=== PATIENT | male | born 1955 | race Caucasian/White ===

== ENCOUNTER 2020-03-14 03:54 | Inpatient (IN) | payer MEDICARE ==
[~2020-03-14] VITALS: Ht 167.6 cm; Wt 85.3 kg
--- OUTSIDE RECORDS SUMMARY | 2020-03-14 03:57 | XMS REPORT | Clinical Summary ---
Author Author [facility] Organization [facility] Address Unknown Phone Unavailable Care Team Providers Care Principal Consultant Name Role Phone Matt Cotton MD PCP Guille Ashton MD PCP Allergies Comments Active Allergy Reactions Severity Noted Date Diane Lerma, 06/21/2017 Itching Medications End Date Status Medication Sig Dispensed Refills Start Date Active ergocalciferol (VITAMIN Take 1 12 capsule 0 D2) 50,000 unit capsule capsule by 7 mouth weekly. Active ergocalciferol (VITAMIN Take 1 12 capsule 0 D2) 50,000 unit capsule capsule by 7 mouth weekly. Active blood glucose test Use 2 times 50 Each 3 01 stripsIndications: Type 2 weekly to 7 diabetes mellitus with test blood other specified sugar. complication, without long-term current use of insulin Active blood glucose Use as 1 Kit 0 meterIndications: Type 2 directed.. 7 diabetes mellitus with other specified complication, without long-term current use of insulin Active lancets 28 Use 2 times 100 Each 1 gaugeIndications: Type 2 weekly. 7 diabetes mellitus with other specified complication, without long-term current use of insulin Active albuterol 90 Inhale 2 20.1 g 1 mcg/actuation Puffs by 7 inhalerIndications: mouth 4 times Chronic bronchitis, daily as unspecified chronic needed for bronchitis type Wheezing. Active Miscellaneous Medical 2 disability 2 Each 0 Supply Misc parking 7 placard for temporary disability. Active tiotropium (SPIRIVA WITH Inhale 1 90 capsule 3 0 HANDIHALER) 18 mcg capsule by 8 inhalation mouth daily. capsuleIndications: Panlobular emphysema, Chronic bronchitis, unspecified chronic bronchitis type Active testosterone cypionate Inject 1 mL 10 mL 0 (DEPO-TESTOSTERONE) 200 intramuscular 8 mg/mL ly every 14 injectionIndications: days. Hypogonadism in male Active naproxen (NAPROSYN) 500 Take 1 tablet 20 tablet 0 mg tabletIndications: by mouth 8 Paronychia of great toe every 12 of left foot hours as needed for Pain Active ipratropium (ATROVENT) Inhale 2.5 mL 250 mL 3 0 0.02 % nebulizer by mouth 4 8 solutionIndications: times daily. Panlobular emphysema Active albuterol (PROVENTIL) 2.5 Inhale 3 mL 300 mL 3 mg /3 mL (0.083 %) by mouth 8 nebulizer every 4 hours solutionIndications: as needed for Panlobular emphysema Wheezing or Shortness of Breath. Active budesonide (PULMICORT) USE 1 VIAL 129 mL 5 0.5 mg/2 mL nebulizer VIA NEBULIZER 8 solutionIndications: COPD TWICE DAILY. exacerbation, Shortness of breath Active mometasone (NASONEX) 50 Use 1 [place] 17 g 4 mcg/actuation nasal in each 8 sprayIndications: Viral nostril URI daily. Active albuterol 90 Inhale 2 30 g 3 mcg/actuation Puffs by 8 inhalerIndications: mouth every 4 Panlobular emphysema, hours as Chronic bronchitis, needed for unspecified chronic Wheezing or bronchitis type Shortness of Breath. Active ipratropium-albuterol 0.5 Inhale 3 mL 300 mL 3 mg-3 mg(2.5 mg base)/3 mL by mouth 8 NebuIndications: every 4 hours Panlobular emphysema as needed for Shortness of Breath or Wheezing. Active fluconazole (DIFLUCAN) Take 1 tablet 90 tablet 1 0 200 mg tabletIndications: by mouth 9 Laura tropicalis daily Lung infection infection. Active metFORMIN (GLUCOPHAGE) Take 1 tablet 180 tablet 1 0 500 mg tabletIndications: by mouth 2 9 Type 2 diabetes mellitus times daily with other specified (with meals). complication, without long-term current use of insulin Active pravastatin (PRAVACHOL) Take 1 tablet 90 tablet 1 40 mg tabletIndications: by mouth at 9 Dyslipidemia bedtime nightly. Active lisinopril (PRINIVIL) 10 Take 1 tablet 90 tablet 1 mg tabletIndications: by mouth 9 Essential hypertension, daily. benign Active loratadine (CLARITIN) 10 Take 1 tablet 90 tablet 1 mg tabletIndications: by mouth 9 Viral URI daily. Active fenofibrate Take 1 tablet 90 tablet 1 nanocrystallized (TRICOR) by mouth 9 145 mg tabletIndications: daily. Hypertriglyceridemia 04/10/2019 Discontinued fenofibrate Take 1 tablet 90 tablet 1 nanocrystallized (TRICOR) by mouth 8 145 mg tabletIndications: daily. Hypertriglyceridemia Active Problems Problem Noted Date Controlled type 2 diabetes mellitus without complicat ion, without long-term 06/10/2018 current use of insulin At risk for dissatisfaction with healthcare 04/17/20 18 Decreased blunger loader strength of left hand 07/03/2017 Type 2 diabetes mellitus without complication, withou t long-term current 06/21/2017 use of insulin Simple chronic bronchitis 06/21/2017 Dyslipidemia 06/21/2017 Closed fracture of fifth metacarpal bone of left hand 05/10/2017 Encounters Care Team Description Date Type Specialty Guille Ashton III, MD Hypertriglyceridemia 08/27/2019 Refill Family Practice Guille Murillo MD COPD exacerbation; Shortness of breath; Essential hypertension, benign; Viral URI:3 days: symptomatic Rx/ meds given //f/u with PCP in 1 wk /patient educated 04/23 ; Type 2 diabetes mellitus with other specified complication, without long-term current use of insulin; Dyslipidemia 08/27/2019 Refill Family Practice Matt Cotton MD Hypertriglyceridemia 04/10/2019 Refill Family Practice after 03/14/2019 Immunizations Name Administration Dates Next Due Influenza Vaccine 07/10/2017 (Deferred: Other - Patient is sick) Influenza, 07/24/2018 Vaccine<FLUCELVAX>(Multi- Dose) PPV 23 Pneumococcal 04/08/2018 (Deferred: Other ) Polysaccaride Td <Unspecified> 05/03/2017 Family History Medical History Relation Name Comments Cancer Father colon cancer Diabetes Father Diabetes Mother Heart Mother Drug abuse Son Seizures Son Relation Name Status Comments Father Maternal Grandfather Maternal Grandmother Mother Alive Paternal Grandfather Paternal Grandmother Sister Alive Sister Alive Son (Age 18) Son Alive Social History Date Tobacco Use Types Packs/Day Years Used Former Smoker Cigarettes Smokeless Tobacco: Never Used Tobacco Cessation: Counseling Given: No Drinks/Week oz/Week Comments Alcohol Use No Food Insecurity Answer Date Recorded Within the past 12 months, you worried that your Never jes e 07/24/2018 food would run out before you got money to buy more. Within the past 12 months, the food you bought Never true 07/24/2018 just didn't last and you didn't have mo marianela to get more. Sex Assigned at Date Recorded Not on file Industry Job Start Date Occupation Not on file Not on file Not on file Travel End Travel History Travel Start No recent travel history available. Last Filed Vital Signs Not on file Plan of Treatment Health Maintenance Due Date Last Done Comments DM Retinal Exam (Yearly) 06/13/2018 06/13/2017 Colorectal Cancer Scrn 07/19/2018 07/19/2017 Annual (FIT/FOBT) Age 50 to 75 DM HGBA1C (Yearly) 04/24/2019 04/24/2018, 017 DM Foot Exam (Yearly) 06/10/2019 06/10/2018, 03/2017, 06/12/2017 IMM Influenza Seasonal 07/07/2020 07/24/2018 Oct to December (>/= 19 yrs) Results Not on fileafter 03/14/2019 Insurance Type Payer Benefit Subscriber ID Effective Phone Address Plan / Dates Group [facility] [employer] [employer] SELF-PAY xxxxxxx 2018- [phone] [id number] [place] [address]
--- OUTSIDE RECORDS SUMMARY | 2020-03-14 03:57 | XMS REPORT | Continuity of Care Document ---
Author Author [facility] t Organization [facility] Address [address] [place] [address] Phone Unavailable Care Team Providers Care Flume Tender Name Role Phone Yury KRISHNA, S Matt PCP Poli KRISHNA, W Guille Attphys Chidi KRISHNA, N Guille Attphys Yury KRISHNA, S Matt Attphys Payers Payer Name Policy Type Policy Number Effective Date Expiration Date S kamran [facility] [id number] SCREENEDxxxxxxx7/1 12/2017-07/06/[id number] [place] [address] xxxxxxx 2018 00:00:00 2020 2 3:59:59 [facility] Problems Condition Name Condition Details Condition Category Status Onset Date Resolution Date Last Treatment Date Treating Clinician Comments Source Controlled type 2 diabetes mellitus with out complication, without long-term current use of insulin Controlled type 2 diabetes mellitus with out complication, without long-term current use of insulin Disease Active 2018-06-10 00:00: 00 [facility] At risk for dissatisfaction with healthcare At risk fo r dissatisfaction with healthcare Disease Active 2018-04-17 00:00:00 H arrSongbird Decreased outreach nurse strength of left hand Decreased outreach nurse strength of left hand Disease Active 2017-07-03 00:00:00 [facility] Type 2 diabetes mellitus without complic ation, without long-term current use of insulin Type 2 diabetes mellitus without complic ation, without long-term current use of insulin Disease Active 2017-06-21 00:00:00 [facility] Simple chronic bronchitis Simple chronic bronchitis Disease Ac tive 2017-06-21 00:00:00 [facility] Dyslipidemia Dyslipidemia Disease Active 2017-06-21 00:00:00 [facility] Closed fracture of fifth metacarpal bone of left hand Closed fracture of fifth metacarpal bone of left hand Disease Active 2017-05-10 00:00:00 [facility] Allergies, Adverse Reactions, Alerts Allergy Name Allergy Type Status Severity Reaction(s) Onset Date Inacti ve Date Treating Clinician Comments Source codeine DA Active MO 2019-09-14 00:00:00 [facility] Codeine Propensity to adverse reactions to drug Active Hives, Itching 2017-06-21 00:00:00 [facility] code[facility] DA Active U 2017-05-01 00:00:00 [facility] Family History Family Member Diagnosis Comments Start Date Stop Date Source Natural father Cancer [facility] Natural father Diabetes [facility] Natural mother Diabetes [facility] Natural mother Heart [facility] Natural son Drug abuse [facility] Natural son Seizures [facility] Social History Social Habit Start Date Stop Date Quantity Comments Source History of tobacco use Cigarette Smoker [facility] Sex Assigned At [facility] Alcohol intake 2019-03-11 00:00:00 2019-03-11 00[facility] 2018-07-24 00:00:00 2018-07-24 00:00:00 1 [facility] Food Scarcity 2018-07-24 00:00:00 2018-07-24 00:00:00 1 [facility] Smoking Status Start Date Stop Date Source Former smoker 2019-03-11 00:00:00 2019-03-11 00:00:[address] [facility] ealt Medications Ordered Medication Name Filled Medication Name Start Date Stop Da te Current Medication? Ordering Clinician Indication Dosage Frequency Signature (SIG) Comments Components Source fenofibrate nanocrystallized (TRICOR) 145 mg tablet 04-13 00:00:00 Yes Hypertriglyceridemia 145mg QD Take 1 tablet by mouth daily. 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 [facility] metFORMIN (GLUCOPHAGE) 500 mg tablet 2019-01-22 00:00:00 Yes Type 2 diabetes mellitus with other specified complication, without long-term current use of insulin 500mg Take 1 tablet by mouth 2 times daily (with meals). [facility] pravastatin (PRAVACHOL) 40 mg tablet 2019-01-22 00:00:00 Yes Dyslipidemia 40mg Take 1 tablet by mouth at bedtime nightly. [facility] lisinopril (PRINIVIL) 10 mg tablet 2019-01-22 00:00:00 Yes Essential hypertension, benign 10mg QD Take 1 tablet by mouth daily. [facility] loratadine (CLARITIN) 10 mg tablet 2019-01-22 00:00:00 Y es Viral URI 10mg QD Take 1 tablet by mouth daily. [facility] albuterol 90 mcg/actuation inhaler 2018-07-24 00:00:00 Yes Chronic bronchitis, unspecified chronic bronchitis type 2{puff} Inhale 2 Puffs by mouth every 4 hours as needed for Wheezing or Shortness of Breath. [facility] ipratropium-albuterol 0.5 mg-3 mg(2.5 mg base)/3 mL Nebu 2018-07-24 00:00:00 Yes Panlobular emphysema 3mL Inha le 3 mL by mouth every 4 hours as needed for Shortness of Breath or Wheezing. [facility] ipratropium (ATROVENT) 0.02 % nebulizer solution 2018-07-03 00:00:00 Yes Panlobular emphysema .5mg Inhale 2.5 mL by mouth 4 times daily. [facility] albuterol (PROVENTIL) 2.5 mg /3 mL (0.083 %) nebulizer solut ion 2018-07-03 00:00:00 Yes Panlobular emphysema 2.5mg Inhale 3 mL by mouth every 4 hours as needed for Wheezing or Shortness of Breath. [facility] budesonide (PULMICORT) 0.5 mg/2 mL nebulizer solution 2018-07-03 00:00:00 Yes Shortness of breath USE 1 VIAL VIA NEBULIZER TWI CE DAILY. [facility] mometasone (NASONEX) 50 mcg/actuation nasal spray 2018-07-03 00:00:00 Yes Viral URI 1{spray} QD Use 1 Hurley in each nostril daily. [facility] fenofibrate nanocrystallized (TRICOR) 145 mg tablet 2018-07-03 00:00:00 2019-04-10 00:00:00 No Hypertriglyceridemia 145mg QD Take 1 tablet by mouth daily. [facility] naproxen (NAPROSYN) 500 mg tablet 2018-06-10 00:00:00 Yes Paronychia of great toe of left foot 500mg Take 1 tablet by mouth every 12 hours as needed for Pain [facility] testosterone cypionate (DEPO-TESTOSTERONE) 200 mg/mL injecti on 2018-01-29 00:00:00 Yes Hypogonadism in male 200mg Q14D Inject 1 mL intramuscularly every 14 days. [facility] tiotropium (SPIRIVA WITH HANDIHALER) 18 mcg inhalation capsu le 2018-01-02 00:00:00 Yes Chronic bronchitis, unspecif ied chronic bronchitis type 1{capsule} QD Inhale 1 capsule by mouth daily. [facility] Miscellaneous Medical Supply Misc 2017-07-19 00:00:00 Yes [address] for temporary disability. [facility] blood glucose test strips 2017-06-13 00:00:00 Yes Type 2 diabetes mellitus with other specified complication, without long-term current use of insulin Use 2 times weekly to test blood sugar. [facility] lancets 28 gauge 2017-06-13 00:00:00 Yes Type 2 diabetes mellitus with other specified complication, without long-term current use of insulin Use 2 times weekly. [facility] blood glucose meter 2017-06-12 00:00:00 Yes Type 2 diabetes mellitus with other specified complication, without long-term current use of insulin Use as directed.. [facility] albuterol 90 mcg/actuation inhaler 2017-06-12 00:00:00 Yes Chronic bronchitis, unspecified chronic bronchitis type 2{puff} Inhale 2 Puffs by mouth 4 times daily as needed for Wheezing. [facility] ergocalciferol (VITAMIN D2) 50,000 unit capsule 2017-05-27 00:00 :00 Yes [id number] Take 1 capsule by mouth weekly. [facility] ergocalciferol (VITAMIN D2) 50,000 unit capsule 2017-05-27 00:00 :00 Yes [id number] Take 1 capsule by mouth weekly. [facility] Immunizations Ordered Immunization Name Filled Immunization Name Date Status Comments Source Influenza, Vaccine<FLUCELVAX>(Multi-Dose) 2018-07-24 00:00 :00 Completed [facility] Td <Unspecified> 2017-05-03 00:00:00 Completed [facility] Procedures This patient has no known procedures. Plan of Care Planned Activity Planned Date Details Comments Source Future Scheduled Test 2020-07-07 00:00:00 IMM Influenza Seas onal Jul to December (>/= 19 yrs) [code = IMM Influenza Seasonal Jul to December (>/= 19 yrs)] [facility] Scheduled Test 2019-06-10 00:00:00 DM Foot Exam (Year ly) [code = DM Foot Exam (Yearly)] [facility] Scheduled Test 2019-04-24 00:00:00 DM HGBA1C (Yearly) [code = DM HGBA1C (Yearly)] [facility] Scheduled Test 2018-07-19 00:00:00 Colorectal Cancer Scrn Annual (FIT/FOBT) Age 50 to 75 [code = Colorectal Cancer Scrn Annual (FIT/FOBT) Age 50 to 75] [facility] Scheduled Test 2018-06-13 00:00:00 DM Retinal Exam (Y early) [code = DM Retinal Exam (Yearly)] [facility] Encounters Start Date/Time End Date/Time Encounter Type Admission Type Attendi [facility] Care Department Encounter ID Source 2018-08-18 00:00:00 2018-08-18 00:00:[address] [facility] [id number] [facility] 2018-08-18 00:00:00 2018-08-18 00:00:[address] [facility] [id number] [facility] 2018-08-04 00:00:00 2018-08-04 00:00:[address] [facility] [id number] [facility] 2018-07-24 15:23:04 2018-07-24 15:23:[address] [facility] [id number] [facility] 2018-06-10 09:13:49 2018-06-10 09:13:[address] [facility] [id number] [facility] 2018-06-06 00:00:00 2018-06-06 00:00:[address] [facility] [id number] [facility] 2018-05-27 00:00:00 2018-05-27 00:00:[address] [facility] [id number] [facility] 2018-05-12 08:55:36 2018-05-12 08:55:[address] [facility] [id number] [facility] 2018-05-09 00:00:00 2018-05-09 00:00:[address] [facility] [id number] [facility] 2018-05-08 10:15:47 2018-05-08 10:15:[address] [facility] [id number] [facility] 2018-05-05 15:18:13 2018-05-05 15:18:[address] [facility] [id number] [facility] 2018-04-28 09:07:51 2018-04-28 09:07:[address] [facility] [id number] [facility] 2018-04-24 08:18:29 2018-04-24 08:18:[address] [facility] [id number] [facility] 2018-04-18 00:00:00 2018-04-18 00:00:[address] [facility] [id number] [facility] 2018-04-17 10:39:26 2018-04-17 10:39:[address] [facility] [id number] [facility] 2018-04-17 09:29:43 2018-04-17 09:29:[address] [facility] [id number] [facility] 2018-04-14 08:32:21 2018-04-14 08:32:[address] [facility] [id number] [facility] 2018-04-08 09:36:12 2018-04-08 09:36:[address] [facility] [id number] [facility] 2018-03-31 10:35:07 2018-03-31 10:35:[address] [facility] [id number] [facility] 2018-03-14 11:04:38 2018-03-14 11:04:[address] [facility] [id number] [facility] 2018-02-28 09:36:52 2018-02-28 09:36:[address] [facility] [id number] [facility] 2018-02-14 09:23:56 2018-02-14 09:23:[address] [facility] [id number] [facility] 2018-02-12 09:09:03 2018-02-12 09:09:[address] [facility] [id number] [facility] 2018-02-12 00:00:00 2018-02-12 00:00:[address] [facility] [id number] [facility] 2018-01-29 11:53:14 2018-01-29 11:53:[address] [facility] [id number] [facility] 2018-01-29 00:00:00 2018-01-29 00:00:[address] [facility] [id number] [facility] 2018-01-28 00:00:00 2018-01-28 00:00:[address] [facility] [id number] [facility] 2018-01-02 09:03:32 2018-01-02 09:03:[address] [facility] [id number] [facility] 2018-01-02 00:00:00 2018-01-02 00:00:[address] [facility] [id number] [facility] 2018-01-02 00:00:00 2018-01-02 00:00:[address] [facility] [id number] [facility] 2017-12-27 13:01:07 2017-12-27 13:01:[address] [facility] [id number] [facility] 2017-12-26 07:52:32 2017-12-26 07:52:[address] [facility] [id number] [facility] 2017-12-26 00:00:00 2017-12-26 00:00:[address] [facility] [id number] [facility] 2017-12-25 09:37:26 2017-12-25 09:37:[address] [facility] [id number] [facility] 2017-12-23 00:00:00 2017-12-23 00:00:[address] [facility] [id number] [facility] 2017-12-13 10:34:56 2017-12-13 10:34:[address] [facility] [id number] [facility] 2017-11-25 08:34:01 2017-11-25 08:34:[address] [facility] [id number] [facility] 2017-09-23 13:45:13 2017-09-23 13:45:[address] [facility] [id number] [facility] 2017-08-01 08:08:12 2017-08-01 08:08:[address] [facility] [id number] [facility] 2017-07-30 07:47:29 2017-07-30 07:47:[address] [facility] [id number] [facility] 2017-07-29 07:57:21 2017-07-29 07:57:[address] [facility] [id number] [facility] 2017-07-29 07:49:20 2017-07-29 07:49:[address] [facility] [id number] [facility] 2017-07-25 09:01:17 2017-07-25 09:01:[address] [facility] [id number] [facility] 2017-07-19 14:50:34 2017-07-19 14:50:[address] [facility] [id number] [facility] 2017-07-16 08:22:34 2017-07-16 08:22:[address] [facility] [id number] [facility] 2017-07-11 00:00:00 2017-07-11 00:00:[address] [facility] [id number] [facility] 2017-07-10 12:12:53 2017-07-10 12:12:[address] [facility] [id number] [facility] 2017-07-10 09:28:01 2017-07-10 09:28:[address] [facility] [id number] [facility] 2017-07-03 08:31:45 2017-07-03 08:31:[address] [facility] [id number] [facility] 2017-06-21 08:54:24 2017-06-21 08:54:[address] [facility] [id number] [facility] 2017-06-21 07:59:13 2017-06-21 07:59:[address] [facility] [id number] [facility] 2017-06-17 15:55:55 2017-06-17 15:55:[address] [facility] [id number] [facility] 2017-06-17 15:08:50 2017-06-17 15:08:[address] [facility] [id number] [facility] 2017-06-14 00:00:00 2017-06-14 00:00:[address] [facility] [id number] [facility] 2017-06-14 00:00:00 2017-06-14 00:00:[address] [facility] [id number] [facility] 2017-06-13 11:23:18 2017-06-13 11:23:[address] [facility] [id number] [facility] 2017-06-13 10:57:36 2017-06-13 10:57:[address] [facility] [id number] [facility] 2017-06-13 08:33:35 2017-06-13 08:33:[address] [facility] [id number] [facility] 2017-06-13 08:24:29 2017-06-13 08:24:[address] [facility] [id number] [facility] 2017-06-13 00:00:00 2017-06-13 00:00:[address] [facility] [id number] [facility] 2017-06-13 00:00:00 2017-06-13 00:00:[address] [facility] [id number] [facility] 2017-06-12 15:55:25 2017-06-12 15:55:[address] [facility] [id number] [facility] 2017-06-12 15:00:51 2017-06-12 15:00:[address] [facility] [id number] [facility] 2017-05-27 00:00:00 2017-05-27 00:00:[address] [facility] [id number] [facility] 2017-05-27 00:00:00 2017-05-27 00:00:[address] [facility] [id number] [facility] 2017-05-20 00:00:00 2017-05-20 00:00:[address] [facility] [id number] [facility] 2017-05-10 08:25:54 2017-05-10 08:25:[address] [facility] [id number] [facility] 2017-05-10 08:25:52 2017-05-10 08:25:[address] [facility] [id number] [facility] 2017-05-10 07:04:10 2017-05-10 07:04:[address] [facility] [id number] [facility] Results Test Description Test Time Test Comments Results Result Comments Source GLUBED 2019-09-15 16:04:00 Test Item GLUBED (test code = GLUBED) 177 mg/dL 74-106 H Performed by certified proof machine operator at [facility] [id number] 09:22:00* Test Item Value Reference Range Interpretation Comments GLUBED (test code = GLUBED) 138 mg/dL 74-106 H Performed by certified proof machine operator at [facility] [id number] 18:06:00* Test Item Value Reference Range Interpretation Comments TROPONIN-I (test code = TROPI) <0.015 ng/mL 0-0.045 N COMMENTS TO PASTRYCOOK: COLLECT 3 HOURS AFTER PREVIOUS SAMPLE- CT CHEST [id number] 15:19:00 Name: SERGIO HITCHCOCK [facility] : 1955 Age/S: 64 / M [address] [facility] Unit #: [id number] Loc: [place] [address] Phys: Stephen Comer CREATIVE DEVELOPER Acct: [id number] Dis Date: Status: ADM IN PHONE #: [phone] Exam Date: 09/14/2019 1240 FAX #: [phone] Reason: chest pain EXAMS: CPT CODE: [id number] CT CHEST W/CONTRAST [id number] REASON FOR EXAM: chest pain EXAM ORDER DATE: 09/14/2019 10:29 AM Ordering M.DNancy: Stephen Comer NP PROCEDURE: - CT CHEST W/CONTRAST Comparison:CT scan of the chest every [address] images of the chest were obtained with IV contrast. Reconstructed sagittal and coronal images of the chest were provided for interpretation. Dose reduction techniques were applied. FINDINGS: Visualized neck: Normal Airways, Lungs and Pleura: There is mild subsegmental atelectasis in the middle lobe and lingula. Heart, great vessels, pulmonary vessels, mediastinum: Proximal pulmonary arteries are within normal limits. Mild atherosclerotic disease is present in the aortic arch. There is also mild coronary atherosclerosis. Cardiac chambers are within normal limits. Lymph nodes: No axillary, internal mammary, hilar, or mediastinal adenopathy. Musculoskeletal/chest wall: Mild degenerative changes are present in the spine. Visualized upper abdomen: Simple appearing cyst is present in the superior pole of the right kidney measuring 6 cm in diameter. Liver is enlarged and fatty. Mild fatty replacement of the pancreas. IMPRESSION: No acute intrathoracic process. Hepatomegaly with hepatic steatosis. Location: [facility] PAGE 1 Signed Report (CONTINUED) Name: SERGIO HITCHCOCK [facility] : 1955 Age/S: 64 / M [address] Unit #: [id number] Loc: [place] [address] Phys: Stephen Comer CREATIVE DEVELOPER Acct: [id number] Dis Date: Status: ADM IN PHONE #: [phone] Exam Date: 09/14/2019 1240 FAX #: [phone] Reason: chest pain EXAMS: CPT CODE: [id number] CT CHEST W/CONTRAST 93570 <Continued> at 1519 Reported and signed by: Sy Joyce MD CC: Stephen Comer NP; Guy Stubbs MD Technologist:Mitesh Burgess RT(R)(CT) CTDI: DLP: Trnscb Date/Time: 09/14/2019 (1622) [email or web address] Orig Print D/T: S: 09/14/2019 (9597) PAGE 2 Signed Report [id number] 15:16:00* Test Item Value Reference Range Interpretation Comments GLUBED (test code = GLUBED) 174 mg/dL 74-106 H Performed by certified proof machine operator at [facility] [id number] 14:39:00* Test Item Value Reference Range Interpretation Comments TROPONIN-I (test code = TROPI) <0.015 ng/mL 0-0.045 N COMMENTS TO PASTRYCOOK: COLLECT 3 HOURS AFTER PREVIOUS [id number] 11:48:00* Test Item Value Reference Range Interpretation Comments GLUBED (test code = GLUBED) 219 mg/dL 74-106 H Performed by certified proof machine operator at [facility] LIPID PROFILE (CORONARY RISK)2019-09-14 09:58:00* Test Item Value Reference Range Interpretation Comments TRIGLYCERIDES (test code = TRIG) 291 mg/dL 20-150 H CHOLESTEROL (test code = CHOL) 161 mg/dL 0-200 N CHOLESTEROL/HDL RATIO (test code = CHOLHDL) 5.0 RATIO 0-4.9 H RISK ASSOCIATED WITH CHOL/HDL RATIOS: Risk Male Female1/2 AVERAGE 3.43 3.27AVERAGE 4.97 4.442X AVERAGE 9.55 7.053X AVERAGE 23.39 11.04 REFERENCE VALUE IS RELATED TO RISK LEVELS ASRECOMMENDED BY THE RAUL. HEART, LUNG, AND BLOOD INST. HDL CHOLESTEROL (test code = HDL) 31 mg/dL 40-60 L LIPOPROTEIN LDL (test code = LDL) 90 mg/dL 100-129 L Reference Interval: mg/dL mmol/L Optimal <100 <2.6Near/above optimal 100-129 2.6- 3.3Borderline High 130-159 3.4-4.1High 160-189 4.1-4.9Very High >=190 >=4.9========= This LDL result is a direct measurement.========= SPECIMEN COMMENTS: add to labsSPECIMEN COMMENTS: add to labs THYROID STIMULATING [id number] 09:58:00* Test Item Value Reference Range Interpretation Comments THYROID STIMULATING HORMONE (test code = TSH) 2.610 uIU/mL 0.36-3.7 4 N TSH REFERENCE RANGES: EUTHYROID: 0.35 - 4.3 mIU/mL HYPO : > 5.5 mIU/mL HYPER : < 0.35 mIU/mL SPECIMEN COMMENTS: add to labsSPECIMEN COMMENTS: add to labs [id number] 08:46:00* Test Item Value Reference Range Interpretation Comments GLUBED (test code = GLUBED) 157 mg/dL 74-106 H Performed by certified proof machine operator at [facility] [id number] 07:55:00* Test Item Value Reference Range Interpretation Comments D-DIMER (test code = DDIMER) 410.00 ng/mLFEU 0-500 N Clinical Cut-off value for D-Dimer is 500 ng/mL FEU. Comment: The [employer] D-Dimer assay is intended for use asan aid in the diagnosis of venous thromboembolism (VTE)[deep vein thrombosis (DVT) or pulmonary embolism (PE)].The measurement of D-Dimer should not be used as an aid inthe diagnosis of VTE, in patient with: -Therapeutic dose anticoagulant therapy for >24 hours -Fibrinolytic therapy within previous 7 days -Trauma or surgery within previous 4 weeks -Disseminated malignancies -Aortic aneurysm -Sepsis, severe infections, pneumonia, severe skin infections -Liver cirrhosis - HEPATIC FUNCTION [id number] 07:39:00* Test Item Value Reference Range Interpretation Comments TOTAL PROTEIN (test code = PROT) 6.9 gram/dL 6.4-8.2 N ALBUMIN (test code = ALB) 3.5 g/dL 3.4-5.0 N GLOBULIN (test code = GLOB) 3.4 gram/dL 2.7-4.2 N ALBUMIN/GLOBULIN RATIO (test code = A/G) 1.0 0.75-1.50 N BILIRUBIN TOTAL (test code = BILT) 0.30 mg/dL 0.0-1.0 N BILIRUBIN DIRECT (test code = BILD) 0.10 mg/dL 0.0-0.20 N SGOT/AST (test code = AST) 10 IUnit/L 15-37 L SGPT/ALT (test code = ALT) 22 IUnit/L 12-78 N ALKALINE PHOSPHATASE TOTAL (test code = ALKP) 65 IUnit/L 45-117 N Note change in reference range due to change in reagent. [id number] 07:39:00* Test Item Value Reference Range Interpretation Comments LIPASE (test code = LIP) 44 U/L 73.0-393.0 L - XR CHEST 1 [id number] 06:56:00 FAX: Moise Donaldson MD [place]: St: REG Name: SERGIO STEWART [facility] : [birth year] Age/S: 64/M [address] [facility] Unit #: [id number] Loc: [place] [address] Phys: Moise Donaldson MD Acct: [id number] Dis Date: Status: REG ER PHONE #: [phone] Exam Date: 09/14/2019 0631 FAX #: [phone] Reason: CHEST PAIN EXAMS: CPT CODE: [id number] XR CHEST 1 V 68798 EXAM: - XR CHEST 1 V Location code:C3 HISTORY: CHEST PAIN COMPARISON: FINDINGS: Single AP view of the chest is pro vided. Heart size and vascularity are within normal limits. The max gs are clear of focal consolidation. No effusion, pneumothorax, or acute osseous abnormality. IMPRESSION: 1. No radiographic sreekanth dence of acute cardiopulmonary process. at 0656 Reported and signed by: Dennis eaton M.D. CC: Moise Donaldson MD Technologist: Kaylie Kendrick(R) Trnscrd Date/Time/By: 09/14/2019 (0656) : By: [email or web address] Orig Print D/T : S: 09/14/2019 (0646) PAGE 1 Sig joey Report BASIC METABOLIC [id number] 06:14:00* Test Item Value Reference Range Interpretation Comments SODIUM (test code = NA) 137 mmol/L 136-145 N POTASSIUM (test code = K) 4.2 mmol/L 3.5-5.1 N CHLORIDE (test code = CL) 105.0 mmol/L 98-107 N CARBON DIOXIDE (test code = CO2) 27.0 mmol/L 21-32 N ANION GAP (test code = GAP) 9.2 10-20 L GLUCOSE (test code = GLU) 144 mg/dL 74-106 H BLOOD UREA NITROGEN (test code = BUN) 18 mg/dL 7-18 N GLOMERULAR FILTRATION RATE (test code = GFR) > 60 mL/min >=60 Estimated GFR by using Modified MDRD formula.Chronic kidney disease is defined as either kidney damageor GFR <60 mL/min/1.73 m2 for >3 months. CREATININE (test code = CREAT) 1.20 mg/dL 0.7-1.3 N BUN/CREATININE RATIO (test code = BUN/CREA) 15.7 10-20 N CALCIUM (test code = CA) 8.9 mg/dL 8.5-10.1 N [id number] 06:14:00* Test Item Value Reference Range Interpretation Comments TROPONIN-I (test code = TROPI) <0.015 ng/mL 0-0.045 N CBC W/O [id number] 06:01:00* Test Item Value Reference Range Interpretation Comments WHITE BLOOD CELL (test code = WBC) 11.4 K/mm3 4.5-12.5 N RED BLOOD CELL (test code = RBC) 4.55 mill/mm3 4.0-5.8 N HEMOGLOBIN (test code = HGB) 13.6 gram/dL 13.0-17.5 N HEMATOCRIT (test code = HCT) 43.8 % 42.0-52.0 N MEAN CELL VOLUME (test code = MCV) 95.8 fL 80-98 N MEAN CELL HGB (test code = MCH) 29.5 picogram 27.0-33.0 N MEAN CELL HGB CONCETRATION (test code = MCHC) 30.7 gram/dL 33.0-36. 0 L RED CELL DISTRIBUTION WIDTH (test code = RDW) 13.5 % 11.6-16. 2 N PLATELET COUNT (test code = PLT) 241 K/mm3 150-450 N MEAN PLATELET VOLUME (test code = MPV) 9.8 fL 6.7-11.0 N BASIC METABOLIC [id number] 05:58:00* Test Item Value Reference Range Interpretation Comments SODIUM (test code = NA) 137 mmol/L 136-145 N POTASSIUM (test code = K) 4.2 mmol/L 3.5-5.1 N CHLORIDE (test code = CL) 105.0 mmol/L 98-107 N CARBON DIOXIDE (test code = CO2) mmol/L 21-32 ANION GAP (test code = GAP) 10-20 GLUCOSE (test code = GLU) mg/dL 74-106 BLOOD UREA NITROGEN (test code = BUN) mg/dL 7-18 GLOMERULAR FILTRATION RATE (test code = GFR) mL/min >=60 CREATININE (test code = CREAT) mg/dL 0.7-1.3 BUN/CREATININE RATIO (test code = BUN/CREA) 10-20 CALCIUM (test code = CA) mg/dL 8.5-10.1 [id number] 05:58:00* Test Item Value Reference Range Interpretation Comments TROPONIN-I (test code = TROPI) ng/mL 0-0.045 CBC W/O [id number] 05:52:00* Test Item Value Reference Range Interpretation Comments WHITE BLOOD CELL (test code = WBC) K/mm3 4.5-12.5 RED BLOOD CELL (test code = RBC) mill/mm3 4.0-5.8 HEMOGLOBIN (test code = HGB) 13.6 gram/dL 13.0-17.5 N HEMATOCRIT (test code = HCT) 43.8 % 42.0-52.0 N MEAN CELL VOLUME (test code = MCV) fL 80-98 MEAN CELL HGB (test code = MCH) picogram 27.0-33.0 MEAN CELL HGB CONCETRATION (test code = MCHC) gram/dL 33.0-36. 0 RED CELL DISTRIBUTION WIDTH (test code = RDW) % 11.6-16. 2 PLATELET COUNT (test code = PLT) K/mm3 150-450 MEAN PLATELET VOLUME (test code = MPV) fL 6.7-11.0
[2020-03-14] MEDS ORDERED: SODIUM CHLORIDE 0.9% 1000ML 1,000 ML IV STA ×2 (04:10→05:34)
--- NOTE | 2020-03-14 04:16 | Emergency Department Note ---
History of Present Illnes History of Present Illness Chief Complaint: Back Pain History of Present Illness This is a 64 year old male presents to the ED for nonspecific back and neck pain of 2 weeks duration with generalized malaise. Patient non-specific in complaints but is concerned but possible malignancy. . Historian: Patient Grocery Manager Required: No Onset (how long ago): week(s) (2) Radiation: back, neck Severity: moderate Onset quality: gradual Duration (how long): week(s) (2) Timing of current episode: constant Progression: worsening Chronicity: new Relieving factors: none Exacerbating factors: none Associated symptoms: weakness Treatments prior to arrival: none Past Medical/Family History Physician Review I have reviewed the patient's past medical and family history. Any updates have been documented here. Past Medical History Recent Fever: No Clinical Suspicion of Infectio: No New/Unexplained Change in Ment: No Social History Smoking Cessation: Current every day smoker Counseling Performed: Yes Alcohol Use: None Any Illegal Drug Use: No Review of Systems Review of Systems Constitutional: weakness EENTM: no symptoms Cardiovascular: no symptoms Respiratory: no symptoms Gastrointestinal: no symptoms Genitourinary: no symptoms Musculoskeletal: back pain, neck pain Neurological: no symptoms Psychological: no symptoms Endocrine: no symptoms Hematological/Lymphatic: no symptoms Review of other systems All other systems reviewed and negative. Physical Exam Related Data Allergies: Coded Allergies: No Known Allergies (Unverified , 03/14/20) Physical Exam CONSTITUTIONAL Constitutional: well-developed, well-nourished HENT HENT: normocephalic, atraumatic, oropharynx clear/moist, nose normal HENT L/R: left ext ear normal, right ext ear normal EYES Eyes: PERRL, conjunctivae normal NECK Neck: ROM normal, other (midline cervical pain TTP) PULMONARY Pulmonary: effort normal, breath sounds normal CARDIOVASCULAR Cardiovascular: regular rhythm, heart sounds normal, capillary refill normal, normal rate GASTROINTESTINAL Abdominal: soft, nontender, bowel sounds normal GENITOURINARY Genitourinary: exam deferred SKIN Skin: warm, dry MUSCULOSKELETAL Musculoskeletal: ROM normal, tenderness (midline lumbar) NEUROLOGICAL Neurological: alert, oriented x 3, no gross motor or sensory deficits PSYCHOLOGICAL Psychological: mood/affect normal, judgement normal Results Laboratory Lab results reviewed: Yes Laboratory comments Laboratory Tests Test 03/14/20 04:50 03/14/20 04:28 Urine Color Yellow (YELLOW) Urine Clarity Cloudy (CLEAR) Urine pH 5 (5 - 7) Urine Specific [place] >=1.030 (1.010-1.025) Urine Protein Trace (NEGATIVE) Urine Glucose (UA) Negative (NEGATIVE) Urine Ketones Negative (NEGATIVE) Urine Blood Negative (NEGATIVE) Urine Nitrite Negative (NEGATIVE) Urine Bilirubin Negative (NEGATIVE) Urine Urobilinogen 0.2 mg/dL (0.2 - 1) Urine Leukocyte Esterase Negative (NEGATIVE) Urine RBC 0-5 /HPF (0-5) Urine WBC 6-10 /HPF (0-5) Urine Epithelial Cells Few /LPF (NONE) Urine Calcium Oxalate Crystals Few (FEW) Urine Other Crystals Present (NONE) Urine Bacteria Few /HPF (NONE) Urine Hyaline Casts 2-5 (0-1) Urine Opiates Screen Negative (NEGATIVE) Urine Methadone Screen Positive (NEGATIVE) Urine Barbiturates Screen Negative (NEGATIVE) Urine Phencyclidine Screen Negative (NEGATIVE) Urine Amphetamines Screen Negative (NEGATIVE) Urine Methamphetamines Screen Negative (NEGATIVE) Urine Benzodiazepines Screen Negative (NEGATIVE) Urine Cocaine Screen Negative (NEGATIVE) Urine Cannabinoids Screen Negative (NEGATIVE) White Blood Count 10.89 x10e3/uL (4.8-10.8) Red Blood Count 4.17 x10e6/uL (4.3-5.7) Hemoglobin 12.4 g/dL (14.0-18.0) Hematocrit 40.2 % (38.2-49.6) Mean Corpuscular Volume 96.4 fL (81-99) Mean Corpuscular Hemoglobin 29.7 pg (28-32) Mean Corpuscular Hemoglobin Concent 30.8 g/dL (31-35) Red Cell Distribution Width 16.8 % (11.7-14.4) Platelet Count 227 x10e3/uL (140-360) Neutrophils (%) (Auto) 59.7 % (38.7-80.0) Lymphocytes (%) (Auto) 26.9 % (18.0-39.1) Monocytes (%) (Auto) 9.1 % (4.4-11.3) Eosinophils (%) (Auto) 3.6 % (0.0-6.0) Basophils (%) (Auto) 0.4 % (0.0-1.0) Neutrophils # (Auto) 6.5 (2.1-6.9) Lymphocytes # (Auto) 2.9 (1.0-3.2) Monocytes # (Auto) 1.0 (0.2-0.8) Eosinophils # (Auto) 0.4 (0.0-0.4) Basophils # (Auto) 0.0 (0.0-0.1) Absolute Immature Granulocyte (auto 0.03 x10e3/uL (0-0.1) Sodium Level 141 mmol/L (136-145) Potassium Level 5.5 mmol/L (3.5-5.1) Chloride Level 104 mmol/L (98-107) Carbon Dioxide Level 18 mmol/L (22-29) Anion Gap 24.5 mmol/L (8-16) Blood Urea Nitrogen 77 mg/dL (7-26) Creatinine 7.58 mg/dL (0.72-1.25) Estimat Glomerular Filtration Rate 7 ML/MIN (60-) BUN/Creatinine Ratio 10 (6-25) Glucose Level 133 mg/dL (74-118) Calcium Level 7.8 mg/dL (8.4-10.2) Total Bilirubin 0.4 mg/dL (0.2-1.2) Aspartate Amino Transf (AST/SGOT) 13 IU/L (5-34) Alanine Aminotransferase (ALT/SGPT) 11 IU/L (0-55) Alkaline Phosphatase 43 IU/L (40-150) Creatine Kinase 564 IU/L (30-200) Creatine Kinase MB 14.90 ng/mL (0-5.0) Troponin I < 0.001 ng/mL (0-0.300) Total Protein 6.7 g/dL (6.5-8.1) Albumin 3.9 g/dL (3.5-5.0) Globulin 2.8 g/dL (2.3-3.5) Albumin/Globulin Ratio 1.4 (0.8-2.0) Ethyl Alcohol Level < 10.0 mg/dL (0.0-10.0) Imaging Imaging results reviewed: Yes Impressions [place] [address] Patient Name: SERGIO HITCHCOCK MR #: [id number] : 1955 Age/Sex: 64/M Req #: [id number] [facility] Physician: Ordered by: NICHOL MOSES DO Report #: [id number] Location: ER Room/Bed: Procedure: CT/CT CHEST WO Exam Date: Exam Time: REPORT STATUS: Signed CT chest, abdomen and pelvis without contrast Indication: back pain, ^abd pain Technique: Thin collimation axial images obtained from the thoracic inlet to the level of the pubic symphysis without intravenous contrast. RADIATION DOSE: Total DLP: 859.65 mGy*cm Estimated effective dose: (DLP x 0.015 x size factor) mSv CTDIvol has been reviewed. It is below the limits set by the Radiation Protocol Committee (RPC). Dose reduction techniques used: Automated exposure control, adjustment of the mAs and/or kVp according to patient size, standardized low-dose protocol, and/or iterative reconstruction technique. Comparison: None. CHEST FINDINGS: Lymph nodes: No enlarged axillary, supraclavicular, mediastinal, or hilar lymph nodes. Thyroid: Visualized portions are normal. Mediastinum: The heart is normal in size. Mild burden of coronary artery atherosclerosis. No pericardial effusion. The esophagus is collapsed. Lungs: Right Lung: Centrilobular emphysema. Diffuse bronchial wall thickening. Subsegmental atelectasis in the middle and lower lobes. Left Lung: Centrilobular emphysema. Diffuse bronchial wall thickening. Subsegmental atelectasis in the lower lobe. Pleura:No pleural effusion or pleural based mass. ABDOMEN FINDINGS: Liver: Moderate to severe steatosis. Right lobe measures 18 cm in length. No evidence for mass. Gallbladder: Present and appears normal. No biliary ductal dilatation. Pancreas: Diffuse fatty atrophy. No mass or ductal dilatation. Spleen: Normal in size without mass. Adrenal Glands: No evidence for mass. Kidneys: Right: Multiple low attenuating cortical lesions. The largest is in the upper pole and measures 6 cm and 8 Hounsfield units suggestive of cyst. No hydronephrosis. Left: A cyst in the anterior interpolar region measures 1.3 cm. There are several other low attenuating cortical lesions scattered throughout the parenchyma, two small to characterize. No hydronephrosis. Lymph Nodes: No lymphadenopathy. Aorta: Normal in diameter with scattered calcifications. PELVIS FINDINGS: Bowel: Stomach: The stomach is normal. Small Bowel: Normal in caliber with normal wall thickness. Large Bowel: Diverticulosis coli. Mild to moderate burden of stool throughout the colon. No pericolonic inflammation. Appendix: Not visualized. Bladder: Mildly underdistended but otherwise normal. Prostate gland is mildly enlarged. Lymph Nodes: No enlarged abdominal or retroperitoneal lymph nodes. No free fluid or fluid collection. Bones: No focal osseous lesions. Soft tissues: Bilateral gynecomastia. Small bilateral fat-containing inguinal hernias. IMPRESSION: 1. Centrilobular emphysema and bronchial wall thickening suggestive of bronchitis. No pulmonary infiltrates. Subsegmental atelectasis. 2. Steatosis and hepatomegaly. Bilateral gynecomastia. 3. Diverticulosis coli. No evidence for bowel obstruction or inflammation. 4. Bilateral renal cortical lesions, some of which represent cysts. These can be evaluated with renal ultrasound on an outpatient basis. Signed by: Dr. Alex Han MD on 03/14/2020 6:36 AM Dictated By: ALEX HAN MD 5 Transcribed By: HUMAIRA on 03/14/20635 COPY TO: NICHOL MOSES DO~ [place] [address] Patient Name: SERGIO HITCHCOCK MR #: [id number] : 1955 Age/Sex: 64/M Req #: [id number] Adm Physician: Ordered by: NICHOL MOSES DO Report #: [id number] Location: Room/Bed: Procedure: [id number] CT/CT ABDOMEN/PELVIS WO Exam Date: Exam Time: REPORT STATUS: Signed CT chest, abdomen and pelvis without contrast Indication: back pain, ^abd pain Technique: Thin collimation axial images obtained from the thoracic inlet to the level of the pubic symphysis without intravenous contrast. RADIATION DOSE: Total DLP: 859.65 mGy*cm Estimated effective dose: (DLP x 0.015 x size factor) mSv CTDIvol has been reviewed. It is below the limits set by the Radiation Protocol Committee (RPC). Dose reduction techniques used: Automated exposure control, adjustment of the mAs and/or kVp according to patient size, standardized low-dose protocol, and/or iterative reconstruction technique. Comparison: None. CHEST FINDINGS: Lymph nodes: No enlarged axillary, supraclavicular, mediastinal, or hilar lymph nodes. Thyroid: Visualized portions are normal. Mediastinum: The heart is normal in size. Mild burden of coronary artery atherosclerosis. No pericardial effusion. The esophagus is collapsed. Lungs: Right Lung: Centrilobular emphysema. Diffuse bronchial wall thickening. Subsegmental atelectasis in the middle and lower lobes. Left Lung: Centrilobular emphysema. Diffuse bronchial wall thickening. Subsegmental atelectasis in the lower lobe. Pleura:No pleural effusion or pleural based mass. ABDOMEN FINDINGS: Liver: Moderate to severe steatosis. Right lobe measures 18 cm in length. No evidence for mass. Gallbladder: Present and appears normal. No biliary ductal dilatation. Pancreas: Diffuse fatty atrophy. No mass or ductal dilatation. Spleen: Normal in size without mass. Adrenal Glands: No evidence for mass. Kidneys: Right: Multiple low attenuating cortical lesions. The largest is in the upper pole and measures 6 cm and 8 Hounsfield units suggestive of cyst. No hydronephrosis. Left: A cyst in the anterior interpolar region measures 1.3 cm. There are several other low attenuating cortical lesions scattered throughout the parenchyma, two small to characterize. No hydronephrosis. Lymph Nodes: No lymphadenopathy. Aorta: Normal in diameter with scattered calcifications. PELVIS FINDINGS: Bowel: Stomach: The stomach is normal. Small Bowel: Normal in caliber with normal wall thickness. Large Bowel: Diverticulosis coli. Mild to moderate burden of stool throughout the colon. No pericolonic inflammation. Appendix: Not visualized. Bladder: Mildly underdistended but otherwise normal. Prostate gland is mildly enlarged. Lymph Nodes: No enlarged abdominal or retroperitoneal lymph nodes. No free fluid or fluid collection. Bones: No focal osseous lesions. Soft tissues: Bilateral gynecomastia. Small bilateral fat-containing inguinal hernias. IMPRESSION: 1. Centrilobular emphysema and bronchial wall thickening suggestive of bronchitis. No pulmonary infiltrates. Subsegmental atelectasis. 2. Steatosis and hepatomegaly. Bilateral gynecomastia. 3. Diverticulosis coli. No evidence for bowel obstruction or inflammation. 4. Bilateral renal cortical lesions, some of which represent cysts. These can be evaluated with renal ultrasound on an outpatient basis. Signed by: Dr. Alex Han MD on 03/14/2020 6:36 AM Dictated By: ALEX HAN MD 5 Transcribed By: HUMAIRA on 03/14/20635 COPY TO: NICHOL MOSES DO~ [place] [address] Patient Name: SERGIO HITCHCOCK MR #: [id number] : 1955 Age/Sex: 64/M Req #: [id number] Adm Physician: Ordered by: NICHOL MOSES DO Report #: [id number] Location: ER Room/Bed: Procedure: [id number] CT/CT ABDOMEN/PELVIS WO Exam Date: Exam Time: REPORT STATUS: Signed CT chest, abdomen and pelvis without contrast Indication: back pain, ^abd pain Technique: Thin collimation axial images obtained from the thoracic inlet to the level of the pubic symphysis without intravenous contrast. RADIATION DOSE: Total DLP: 859.65 mGy*cm Estimated effective dose: (DLP x 0.015 x size factor) mSv CTDIvol has been reviewed. It is below the limits set by the Radiation Protocol Committee (RPC). Dose reduction techniques used: Automated exposure control, adjustment of the mAs and/or kVp according to patient size, standardized low-dose protocol, and/or iterative reconstruction technique. Comparison: None. CHEST FINDINGS: Lymph nodes: No enlarged axillary, supraclavicular, mediastinal, or hilar lymph nodes. Thyroid: Visualized portions are normal. Mediastinum: The heart is normal in size. Mild burden of coronary artery atherosclerosis. No pericardial effusion. The esophagus is collapsed. Lungs: Right Lung: Centrilobular emphysema. Diffuse bronchial wall thickening. Subsegmental atelectasis in the middle and lower lobes. Left Lung: Centrilobular emphysema. Diffuse bronchial wall thickening. Subsegmental atelectasis in the lower lobe. Pleura:No pleural effusion or pleural based mass. ABDOMEN FINDINGS: Liver: Moderate to severe steatosis. Right lobe measures 18 cm in length. No evidence for mass. Gallbladder: Present and appears normal. No biliary ductal dilatation. Pancreas: Diffuse fatty atrophy. No mass or ductal dilatation. Spleen: Normal in size without mass. Adrenal Glands: No evidence for mass. Kidneys: Right: Multiple low attenuating cortical lesions. The largest is in the upper pole and measures 6 cm and 8 Hounsfield units suggestive of cyst. No hydronephrosis. Left: A cyst in the anterior interpolar region measures 1.3 cm. There are several other low attenuating cortical lesions scattered throughout the parenchyma, two small to characterize. No hydronephrosis. Lymph Nodes: No lymphadenopathy. Aorta: Normal in diameter with scattered calcifications. PELVIS FINDINGS: Bowel: Stomach: The stomach is normal. Small Bowel: Normal in caliber with normal wall thickness. Large Bowel: Diverticulosis coli. Mild to moderate burden of stool throughout the colon. No pericolonic inflammation. Appendix: Not visualized. Bladder: Mildly underdistended but otherwise normal. Prostate gland is mildly enlarged. Lymph Nodes: No enlarged abdominal or retroperitoneal lymph nodes. No free fluid or fluid collection. Bones: No focal osseous lesions. Soft tissues: Bilateral gynecomastia. Small bilateral fat-containing inguinal hernias. IMPRESSION: 1. Centrilobular emphysema and bronchial wall thickening suggestive of bronchitis. No pulmonary infiltrates. Subsegmental atelectasis. 2. Steatosis and hepatomegaly. Bilateral gynecomastia. 3. Diverticulosis coli. No evidence for bowel obstruction or inflammation. 4. Bilateral renal cortical lesions, some of which represent cysts. These can be evaluated with renal ultrasound on an outpatient basis. Signed by: Dr. Alex Han MD on 03/14/2020 6:36 AM Dictated By: ALEX HAN MD 5 Transcribed By: HUMAIRA on 03/14/20635 COPY TO: NICHOL MOSES DO~ Procedures 12 Lead ECG Interpretation Grocery Manager: Interpreted by ED physician Date: Mar 14, 2020 Time: 04:29 Prior SPECTROGRAPHER tracings: reviewed Rhythm: sinus rhythm Rate: normal BPM: 68 QRS axis: normal ST segments normal: Yes T waves normal: Yes Clinical Impression: normal ECG Central Line Placement Central Line Location: right femoral Time out performed: No Patient Placed on Monitor/Puls: No MD Prep: mask, gown, gloves, other Central Line Prep: Chlorhexidine scrub Local Anesthetic: lidocaine 1% Amount of anesthesia used (mL): 5 Ultrasound Used for Placement: No Central Line Lumen Inserted: triple Post Procedure: sutured in place, good blood return, all ports aspirated/flushed/capped, sterile dressing applied Post Procedure X-ray: tip of catheter in good condition Patient tolerated procedure: well Complications: none Critical Care Time Total Critical Care Time (min): 31 Critcal care necessary due to: shock Assessment & Plan Assessment & Plan Final Impression: (1) Renal failure (2) Hypotension Assessment & Plan Patient with persistant low blood pressure despite aggressive fluid resuscitation. Case d/w nephrology . Plan to admit to the medicine service. CVC placed in the right femoral vein. Depart Disposition: ADMITTED Home Meds Reported Medications Ascorbic Acid (VITAMIN C) 1,000 Mg Tablet.er, 1 TAB PO DAILY 03/14/20 Gabapentin (GABAPENTIN) 400 Mg Capsule 03/14/20 Aspirin (ASPIR 81) 81 Mg Tablet.dr, 1 TAB PO DAILY 03/14/20 Atorvastatin Calcium (ATORVASTATIN CALCIUM) 40 Mg Tablet 03/14/20 Lisinopril (LISINOPRIL) 10 Mg Tablet 03/14/20 Loratadine (LORATADINE) 10 Mg Tablet 03/14/20 Fenofibrate Nanocrystallized (Fenofibrate) 145 Mg Tablet 03/14/20 Clopidogrel Bisulfate (CLOPIDOGREL) 75 Mg Tablet 03/14/20 Metformin Hcl (METFORMIN HCL) 500 Mg Tablet 03/14/20 Fluconazole (FLUCONAZOLE) 200 Mg Tablet 03/14/20 Metoprolol Tartrate (METOPROLOL TARTRATE) 25 Mg Tablet, 12.5 MG PO BID, TAB 03/14/20 Medications in the ED Sodium Chloride 1,000 ml @ 0 mls/hr Q0M STAT IV ; Start 03/14/20 at 04:10; Stop 03/14/20 at 04:12; Status NICHOL SIMMONS DO Mar 14, 2020 04:16
[2020-03-14 04:51] LABS: BASOPHILS % 0.4 % (0.0-1.0); EOSINOPHILS # (AUTO) 0.4 (0.0-0.4); EOSINOPHILS % 3.6 % (0.0-6.0); HEMATOCRIT 40.2 % (38.2-49.6); HEMOGLOBIN 12.4 g/dL (14.0-18.0); LYMPHOCYTES # (AUTO) 2.9 (1.0-3.2); LYMPHOCYTES % 26.9 % (18.0-39.1); MEAN CORPUSCULAR HEMOGLOBIN 29.7 pg (28-32); MEAN CORPUSCULAR HGB CONC 30.8 g/dL (31-35); MEAN CORPUSCULAR VOLUME 96.4 fL (81-99); MONOCYTES % 9.1 % (4.4-11.3); NEUTROPHILS # (AUTO) 6.5 (2.1-6.9); NEUTROPHILS % 59.7 % (38.7-80.0); PLATELET COUNT 227 x10e3/uL (140-360); RED BLOOD COUNT 4.17 x10e6/uL (4.3-5.7); RED CELL DISTRIBUTION WIDTH 16.8 % (11.7-14.4)
[2020-03-14 04:57] LABS: CLARITY,URINE CLOUDY (CLEAR); COLOR,URINE YELLOW (YELLOW); KETONES,URINE NEGATIVE (NEGATIVE); LEUKOCYTE ESTERASE ,URINE NEGATIVE (NEGATIVE); NITRITE,URINE NEGATIVE (NEGATIVE); PROTEIN,URINE DIPSTICK TRACE (NEGATIVE)
[2020-03-14 04:58] LABS: AMPHETAMINES SCREEN,URINE NEGATIVE (NEGATIVE); BENZODIAZEPINES SCREEN,URINE NEGATIVE (NEGATIVE); PHENCYCLIDINE SCREEN,URINE NEGATIVE (NEGATIVE); URINE UROBILINOGEN 0.2 mg/dL (0.2 - 1)
[2020-03-14 04:59] LABS: BILIRUBIN,URINE NEGATIVE (NEGATIVE)
[2020-03-14 05:15] LABS: ALBUMIN 3.9 g/dL (3.5-5.0); ALBUMIN/GLOBULIN RATIO 1.4 (0.8-2.0); ANION GAP 24.5 mmol/L (8-16); CALCIUM 7.8 mg/dL (8.4-10.2); CREATININE, SERUM 7.58 mg/dL (0.72-1.25); POTASSIUM 5.5 mmol/L (3.5-5.1)
[2020-03-14 05:23] LABS: BACTERIA,URINE FEW /HPF; EPITHELIAL CELLS,URINE FEW /LPF; RBC,URINE 0-5 /HPF (0-5)
[2020-03-14 05:29] LABS: CALCIUM OXALATE CRYSTALS,UR FEW (FEW); OTHER CRYSTALS,URINE PRESENT
[2020-03-14] MEDS ORDERED: SODIUM CHLORIDE 0.9% 1000ML 1,000 ML ONE ×2 (05:42→11:14)
[2020-03-14] MEDS ORDERED: ONDANSETRON HCL INJ 2MG/ML 2ML 2 MG/ML VIAL IV PRN (05:45)
--- NOTE | 2020-03-14 06:28 | Diagnostic Imaging Report ---
Examination: CT CERVICAL SPINE WO CONTRAST HISTORY:Neck pain radiating down the back. COMPARISON:None. TECHNIQUE: Multidetector helical axial images were obtained without contrast from the foramen magnum to T1. Coronal and sagittal reformatted images were done. Bone and soft tissue windows were evaluated. Dose modulation, iterative reconstruction, and/or weight based adjustment of the mA/kV was utilized to reduce the radiation dose to as low as reasonably achievable. FINDINGS: Alignment:Normal alignment with straightening of normal lordosis. Vertebrae: Normal height and density. No acute fracture, infection or neoplasm. Disc space heights: Normal height. Caliber of spinal canal: Developmentally normal. Posterior fossa and craniocervical junction: Foramen magnum patent. No Chiari 1 malformation. Soft tissues: No abnormality. Degenerative changes: No disc bulge/ herniation or foraminal or canal stenosis. Visualized lung apices: No abnormalities. IMPRESSION: No acute abnormalities. Signed by: Dr. Argentina Macias M.D. on 03/14/2020 6:25 AM
[2020-03-14 06:32] LABS: CREATINE KINASE 564 IU/L (30-200)
--- NOTE | 2020-03-14 06:40 | Diagnostic Imaging Report ---
CT chest, abdomen and pelvis without contrast Indication: back pain, ^abd pain Technique: Thin collimation axial images obtained from the thoracic inlet to the level of the pubic symphysis without intravenous contrast. RADIATION DOSE: Total DLP: 859.65 mGy*cm Estimated effective dose: (DLP x 0.015 x size factor) mSv CTDIvol has been reviewed. It is below the limits set by the Radiation Protocol Committee (RPC). Dose reduction techniques used: Automated exposure control, adjustment of the mAs and/or kVp according to patient size, standardized low-dose protocol, and/or iterative reconstruction technique. Comparison: None. CHEST FINDINGS: Lymph nodes: No enlarged axillary, supraclavicular, mediastinal, or hilar lymph nodes. Thyroid: Visualized portions are normal. Mediastinum: The heart is normal in size. Mild burden of coronary artery atherosclerosis. No pericardial effusion. The esophagus is collapsed. Lungs: Right Lung: Centrilobular emphysema. Diffuse bronchial wall thickening. Subsegmental atelectasis in the middle and lower lobes. Left Lung: Centrilobular emphysema. Diffuse bronchial wall thickening. Subsegmental atelectasis in the lower lobe. Pleura:No pleural effusion or pleural based mass. ABDOMEN FINDINGS: Liver: Moderate to severe steatosis. Right lobe measures 18 cm in length. No evidence for mass. Gallbladder: Present and appears normal. No biliary ductal dilatation. Pancreas: Diffuse fatty atrophy. No mass or ductal dilatation. Spleen: Normal in size without mass. Adrenal Glands: No evidence for mass. Kidneys: Right: Multiple low attenuating cortical lesions. The largest is in the upper pole and measures 6 cm and 8 Hounsfield units suggestive of cyst. No hydronephrosis. Left: A cyst in the anterior interpolar region measures 1.3 cm. There are several other low attenuating cortical lesions scattered throughout the parenchyma, two small to characterize. No hydronephrosis. Lymph Nodes: No lymphadenopathy. Aorta: Normal in diameter with scattered calcifications. PELVIS FINDINGS: Bowel: Stomach: The stomach is normal. Small Bowel: Normal in caliber with normal wall thickness. Large Bowel: Diverticulosis coli. Mild to moderate burden of stool throughout the colon. No pericolonic inflammation. Appendix: Not visualized. Bladder: Mildly underdistended but otherwise normal. Prostate gland is mildly enlarged. Lymph Nodes: No enlarged abdominal or retroperitoneal lymph nodes. No free fluid or fluid collection. Bones: No focal osseous lesions. Soft tissues: Bilateral gynecomastia. Small bilateral fat-containing inguinal hernias. IMPRESSION: 1. Centrilobular emphysema and bronchial wall thickening suggestive of bronchitis. No pulmonary infiltrates. Subsegmental atelectasis. 2. Steatosis and hepatomegaly. Bilateral gynecomastia. 3. Diverticulosis coli. No evidence for bowel obstruction or inflammation. 4. Bilateral renal cortical lesions, some of which represent cysts. These can be evaluated with renal ultrasound on an outpatient basis. Signed by: Dr. Paula Han MD on 03/14/2020 6:36 AM
--- OUTSIDE RECORDS SUMMARY | 2020-03-14 06:44 | XMS REPORT | Continuity of Care Document ---
Author Author [facility] t Organization [facility] Address [address] [place] [address] Phone Unavailable Care Team Providers Care Ceramic Research Engineer Name Role Phone Yury KRISHNA, S Matt PCP NICHOL MOSES Attphys Unavailable Poli KRISHNA, W Guille Attphys Chidi KRISHNA, N Guille Attphys Yury KRISHNA, S Matt Attphys Herb RITCHIE Admphys Unavailable Payers Payer Name Policy Type Policy Number Effective Date Expiration Date Rosanna andrew [facility] [id number] [id number] 12/2017-07/06/[id number] [place] [address] xxxxxxx 2018 00:00:00 2020 2 3:59:59 [facility] Problems Condition Name Condition Details Condition Category Status Onset Date Resolution Date Last Treatment Date Treating Clinician Comments Source Controlled type 2 diabetes mellitus with out complication, without long-term current use of insulin Controlled type 2 diabetes mellitus with out complication, without long-term current use of insulin Disease Active 2018-06-10 00:00: 00 [facility] At risk for dissatisfaction with healthcare At risk fo r dissatisfaction with healthcare Disease Active 2018-04-17 00:00:00 H arrArcamed Decreased patch setter strength of left hand Decreased patch setter strength of left hand Disease Active 2017-07-03 00:00:00 [facility] Type 2 diabetes mellitus without complic ation, without long-term current use of insulin Type 2 diabetes mellitus without complic ation, without long-term current use of insulin Disease Active 2017-06-21 00:00:00 [facility] Simple chronic bronchitis Simple chronic bronchitis Disease Ac tive 2017-06-21 00:00:00 [facility] Dyslipidemia Dyslipidemia Disease Active 2017-06-21 00:00:00 [facility] Closed fracture of fifth metacarpal bone of left hand Closed fracture of fifth metacarpal bone of left hand Disease Active 2017-05-10 00:00:00 [facility] Allergies, Adverse Reactions, Alerts Allergy Name Allergy Type Status Severity Reaction(s) Onset Date Inacti ve Date Treating Clinician Comments Source codeine DA Active MO 2019-09-14 00:00:00 [facility] Codeine Propensity to adverse reactions to drug Active Hives, Itching 2017-06-21 00:00:00 [facility] codeine DA Active U 2017-05-01 00:00:00 [facility] Family History Family Member Diagnosis Comments Start Date Stop Date Source Natural father Cancer [facility] Natural father Diabetes [facility] Natural mother Diabetes [facility] Natural mother Heart [facility] Natural son Drug abuse [facility] Natural son Seizures [facility] Social History Social Habit Start Date Stop Date Quantity Comments Source History of tobacco use Cigarette Smoker [facility] Sex Assigned [facility] Alcohol intake 2019-03-11 00:00:00 2019-03-11 00:00:00 [facility] SDOH Food Worry 2018-07-24 00:00:00 2018-07-24 00:00:00 1 [facility] Food Scarcity 2018-07-24 00:00:00 2018-07-24 00:00:00 1 [facility] Smoking Status Start Date Stop Date Source Former smoker 2019-03-11 00:00:00 2019-03-11 00:00:00 [facility] ealt Medications Ordered Medication Name Filled Medication Name Start Date Stop Da te Current Medication? Ordering Clinician Indication Dosage Frequency Signature (SIG) Comments Components Source fenofibrate nanocrystallized (TRICOR) 145 mg tablet 04-13 00:00:00 Yes Hypertriglyceridemia 145mg QD Take 1 tablet by mouth daily. 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 [facility] metFORMIN (GLUCOPHAGE) 500 mg tablet 2019-01-22 00:00:00 Yes Type 2 diabetes mellitus with other specified complication, without long-term current use of insulin 500mg Take 1 tablet by mouth 2 times daily (with meals). [facility] pravastatin (PRAVACHOL) 40 mg tablet 2019-01-22 00:00:00 Yes Dyslipidemia 40mg Take 1 tablet by mouth at bedtime nightly. [facility] lisinopril (PRINIVIL) 10 mg tablet 2019-01-22 00:00:00 Yes Essential hypertension, benign 10mg QD Take 1 tablet by mouth daily. [facility] loratadine (CLARITIN) 10 mg tablet 2019-01-22 00:00:00 Y es Viral URI 10mg QD Take 1 tablet by mouth daily. [facility] albuterol 90 mcg/actuation inhaler 2018-07-24 00:00:00 Yes Chronic bronchitis, unspecified chronic bronchitis type 2{puff} Inhale 2 Puffs by mouth every 4 hours as needed for Wheezing or Shortness of Breath. [facility] ipratropium-albuterol 0.5 mg-3 mg(2.5 mg base)/3 mL Nebu 2018-07-24 00:00:00 Yes Panlobular emphysema 3mL Inha le 3 mL by mouth every 4 hours as needed for Shortness of Breath or Wheezing. [facility] ipratropium (ATROVENT) 0.02 % nebulizer solution 2018-07-03 00:00:00 Yes Panlobular emphysema .5mg Inhale 2.5 mL by mouth 4 times daily. [facility] albuterol (PROVENTIL) 2.5 mg /3 mL (0.083 %) nebulizer solut ion 2018-07-03 00:00:00 Yes Panlobular emphysema 2.5mg Inhale 3 mL by mouth every 4 hours as needed for Wheezing or Shortness of Breath. [facility] budesonide (PULMICORT) 0.5 mg/2 mL nebulizer solution 2018-07-03 00:00:00 Yes Shortness of breath USE 1 VIAL VIA NEBULIZER TWI CE DAILY. [facility] mometasone (NASONEX) 50 mcg/actuation nasal spray 2018-07-03 00:00:00 Yes Viral URI 1{spray} QD Use 1 [place] in each nostril daily. [facility] fenofibrate nanocrystallized (TRICOR) 145 mg tablet 2018-07-03 00:00:00 2019-04-10 00:00:00 No Hypertriglyceridemia 145mg QD Take 1 tablet by mouth daily. [facility] naproxen (NAPROSYN) 500 mg tablet 2018-06-10 00:00:00 Yes Paronychia of great toe of left foot 500mg Take 1 tablet by mouth every 12 hours as needed for Pain [facility] testosterone cypionate (DEPO-TESTOSTERONE) 200 mg/mL injecti on 2018-01-29 00:00:00 Yes Hypogonadism in male 200mg Q14D Inject 1 mL intramuscularly every 14 days. [facility] tiotropium (SPIRIVA WITH HANDIHALER) 18 mcg inhalation capsu le 2018-01-02 00:00:00 Yes Chronic bronchitis, unspecif ied chronic bronchitis type 1{capsule} QD Inhale 1 capsule by mouth daily. [facility] Miscellaneous Medical Supply Misc 2017-07-19 00:00:00 Yes [address] for temporary disability. [facility] blood glucose test strips 2017-06-13 00:00:00 Yes Type 2 diabetes mellitus with other specified complication, without long-term current use of insulin Use 2 times weekly to test blood sugar. [facility] lancets 28 gauge 2017-06-13 00:00:00 Yes Type 2 diabetes mellitus with other specified complication, without long-term current use of insulin Use 2 times weekly. [facility] blood glucose meter 2017-06-12 00:00:00 Yes Type 2 diabetes mellitus with other specified complication, without long-term current use of insulin Use as directed.. [facility] albuterol 90 mcg/actuation inhaler 2017-06-12 00:00:00 Yes Chronic bronchitis, unspecified chronic bronchitis type 2{puff} Inhale 2 Puffs by mouth 4 times daily as needed for Wheezing. [facility] ergocalciferol (VITAMIN D2) 50,000 unit capsule 2017-05-27 00:00 :00 Yes [id number] Take 1 capsule by mouth weekly. [facility] ergocalciferol (VITAMIN D2) 50,000 unit capsule 2017-05-27 00:00 :00 Yes [id number] Take 1 capsule by mouth weekly. [facility] Immunizations Ordered Immunization Name Filled Immunization Name Date Status Comments Source Influenza, Vaccine<FLUCELVAX>(Multi-Dose) 2018-07-24 00:00 :00 Completed [facility] Td <Unspecified> 2017-05-03 00:00:00 Completed [facility] Procedures This patient has no known procedures. Plan of Care Planned Activity Planned Date Details Comments Source [facility] Scheduled Test 2020-07-07 00:00:00 IMM Influenza Seas onal Jul to December (>/= 19 yrs) [code = IMM Influenza Seasonal Jul to December (>/= 19 yrs)] [facility] Scheduled Test 2019-06-10 00:00:00 DM Foot Exam (Year ly) [code = DM Foot Exam (Yearly)] [facility] Scheduled Test 2019-04-24 00:00:00 DM HGBA1C (Yearly) [code = DM HGBA1C (Yearly)] [facility] Scheduled Test 2018-07-19 00:00:00 Colorectal Cancer Scrn Annual (FIT/FOBT) Age 50 to 75 [code = Colorectal Cancer Scrn Annual (FIT/FOBT) Age 50 to 75] [facility] Scheduled Test 2018-06-13 00:00:00 DM Retinal Exam (Y early) [code = DM Retinal Exam (Yearly)] [facility] Encounters Start Date/Time End Date/Time Encounter Type Admission Type [facility] Care Department Encounter ID Source 2018-08-18 00:00:00 2018-08-18 00:00:00 Outpatient [facility] [id number] [facility] 2018-08-18 00:00:00 2018-08-18 00:00:00 Outpatient [facility] [id number] [facility] 2018-08-04 00:00:00 2018-08-04 00:00:00 Outpatient [facility] [id number] [facility] 2018-07-24 15:23:04 2018-07-24 15:23:04 Outpatient [facility] [id number] [facility] 2018-06-10 09:13:49 2018-06-10 09:13:49 Outpatient [facility] [id number] [facility] 2018-06-06 00:00:00 2018-06-06 00:00:00 Outpatient [facility] [id number] [facility] 2018-05-27 00:00:00 2018-05-27 00:00:00 Outpatient [facility] [id number] [facility] 2018-05-12 08:55:36 2018-05-12 08:55:36 Outpatient [facility] [id number] [facility] 2018-05-09 00:00:00 2018-05-09 00:00:00 Outpatient [facility] [id number] [facility] 2018-05-08 10:15:47 2018-05-08 10:15:47 Outpatient [facility] [id number] [facility] 2018-05-05 15:18:13 2018-05-05 15:18:13 Outpatient [facility] [id number] [facility] 2018-04-28 09:07:51 2018-04-28 09:07:51 Outpatient [facility] [id number] [facility] 2018-04-24 08:18:29 2018-04-24 08:18:29 Outpatient [facility] [id number] [facility] 2018-04-18 00:00:00 2018-04-18 00:00:00 Outpatient [facility] [id number] [facility] 2018-04-17 10:39:26 2018-04-17 10:39:26 Outpatient [facility] [id number] [facility] 2018-04-17 09:29:43 2018-04-17 09:29:43 Outpatient [facility] [id number] [facility] 2018-04-14 08:32:21 2018-04-14 08:32:21 Outpatient [facility] [id number] [facility] 2018-04-08 09:36:12 2018-04-08 09:36:12 Outpatient [facility] [id number] [facility] 2018-03-31 10:35:07 2018-03-31 10:35:07 Outpatient [facility] [id number] [facility] 2018-03-14 11:04:38 2018-03-14 11:04:38 Outpatient [facility] [id number] [facility] 2018-02-28 09:36:52 2018-02-28 09:36:52 Outpatient [facility] [id number] [facility] 2018-02-14 09:23:56 2018-02-14 09:23:56 Outpatient [facility] [id number] [facility] 2018-02-12 09:09:03 2018-02-12 09:09:03 Outpatient [facility] [id number] [facility] 2018-02-12 00:00:00 2018-02-12 00:00:00 Outpatient [facility] [id number] [facility] 2018-01-29 11:53:14 2018-01-29 11:53:14 Outpatient [facility] [id number] [facility] 2018-01-29 00:00:00 2018-01-29 00:00:00 Outpatient [facility] [id number] [facility] 2018-01-28 00:00:00 2018-01-28 00:00:00 Outpatient [facility] [id number] [facility] 2018-01-02 09:03:32 2018-01-02 09:03:32 Outpatient [facility] [id number] [facility] 2018-01-02 00:00:00 2018-01-02 00:00:00 Outpatient [facility] [id number] [facility] 2018-01-02 00:00:00 2018-01-02 00:00:00 Outpatient [facility] [id number] [facility] 2017-12-27 13:01:07 2017-12-27 13:01:07 Outpatient [facility] [id number] [facility] 2017-12-26 07:52:32 2017-12-26 07:52:32 Outpatient [facility] [id number] [facility] 2017-12-26 00:00:00 2017-12-26 00:00:00 Outpatient [facility] [id number] [facility] 2017-12-25 09:37:26 2017-12-25 09:37:26 Outpatient [facility] [id number] [facility] 2017-12-23 00:00:00 2017-12-23 00:00:00 Outpatient [facility] [id number] [facility] 2017-12-13 10:34:56 2017-12-13 10:34:56 Outpatient [facility] [id number] [facility] 2017-11-25 08:34:01 2017-11-25 08:34:01 Outpatient [facility] [id number] [facility] 2017-09-23 13:45:13 2017-09-23 13:45:13 Outpatient [facility] [id number] [facility] 2017-08-01 08:08:12 2017-08-01 08:08:12 Outpatient [facility] [id number] [facility] 2017-07-30 07:47:29 2017-07-30 07:47:29 Outpatient [facility] [id number] [facility] 2017-07-29 07:57:21 2017-07-29 07:57:21 Outpatient [facility] [id number] [facility] 2017-07-29 07:49:20 2017-07-29 07:49:20 Outpatient [facility] [id number] [facility] 2017-07-25 09:01:17 2017-07-25 09:01:17 Outpatient [facility] [id number] [facility] 2017-07-19 14:50:34 2017-07-19 14:50:34 Outpatient [facility] [id number] [facility] 2017-07-16 08:22:34 2017-07-16 08:22:34 Outpatient [facility] [id number] [facility] 2017-07-11 00:00:00 2017-07-11 00:00:00 Outpatient [facility] [id number] [facility] 2017-07-10 12:12:53 2017-07-10 12:12:53 Outpatient [facility] [id number] [facility] 2017-07-10 09:28:01 2017-07-10 09:28:01 Outpatient [facility] [id number] [facility] 2017-07-03 08:31:45 2017-07-03 08:31:45 Outpatient [facility] [id number] [facility] 2017-06-21 08:54:24 2017-06-21 08:54:24 Outpatient [facility] [id number] [facility] 2017-06-21 07:59:13 2017-06-21 07:59:13 Outpatient [facility] [id number] [facility] 2017-06-17 15:55:55 2017-06-17 15:55:55 Outpatient [facility] [id number] [facility] 2017-06-17 15:08:50 2017-06-17 15:08:50 Outpatient [facility] [id number] [facility] 2017-06-14 00:00:00 2017-06-14 00:00:00 Outpatient [facility] [id number] [facility] 2017-06-14 00:00:00 2017-06-14 00:00:00 Outpatient [facility] [id number] [facility] 2017-06-13 11:23:18 2017-06-13 11:23:18 Outpatient [facility] [id number] [facility] 2017-06-13 10:57:36 2017-06-13 10:57:36 Outpatient [facility] [id number] [facility] 2017-06-13 08:33:35 2017-06-13 08:33:35 Outpatient [facility] [id number] [facility] 2017-06-13 08:24:29 2017-06-13 08:24:29 Outpatient [facility] [id number] [facility] 2017-06-13 00:00:00 2017-06-13 00:00:00 Outpatient [facility] [id number] [facility] 2017-06-13 00:00:00 2017-06-13 00:00:00 Outpatient [facility] [id number] [facility] 2017-06-12 15:55:25 2017-06-12 15:55:25 Outpatient [facility] [id number] [facility] 2017-06-12 15:00:51 2017-06-12 15:00:51 Outpatient [facility] [id number] [facility] 2017-05-27 00:00:00 2017-05-27 00:00:00 Outpatient [facility] [id number] [facility] 2017-05-27 00:00:00 2017-05-27 00:00:00 Outpatient [facility] [id number] [facility] 2017-05-20 00:00:00 2017-05-20 00:00:00 Outpatient [facility] [id number] [facility] 2017-05-10 08:25:54 2017-05-10 08:25:54 Emergency [facility] [id number] [facility] 2017-05-10 08:25:52 2017-05-10 08:25:52 Emergency [facility] [id number] [facility] 2017-05-10 07:04:10 2017-05-10 07:04:10 Emergency [facility] [id number] [facility] Results Test Description Test Time Test Comments Results Result Comments Source CT CERVICAL SPINE WO 2020-03-14 06:20:00 [place] [address] Patient Name: SERGIO HITCHCOCK MR #: [id number] : 1955 Age/Sex: 64/M Req #: [id number] Adm Physician: Ordered by: NICHOL MOSES DO Report #: [id number] Location: ER Room/Bed: Procedure: [id number] CT/CT CERVICAL SPINE WO Exam Date: Exam Time: REPORT STATUS: Signed Examination: CT CERVICAL SPINE WO CONTRAST HISTORY:Neck pain radiating down the back. COMPARISON:None. TECHNIQUE: Multidetector helical axial images were obtained without contrast from the foramen magnum to T1. Coronal and sagittal reformatted images were done. Bone and soft tissue windows were evaluated. Dose modulation, iterative reconstruction, and/or weight based adjustment of the mA/kV was utilized to reduce the radiation dose to as low as reasonably achievable. FINDINGS: Alignment:Normal alignment with straightening of normal lordosis. Vertebrae: Normal height and density. No acute fracture, infection or neoplasm. Disc space heights: Normal height. Caliber of spinal canal: Developmentally normal. Posterior fossa and craniocervical junction: Foramen magnum patent. No Chiari 1 malformation. Soft tissues: No abnormality. Degenerative changes: No disc bulge/ herniation or foraminal or canal stenosis. Visualized lung apices: No abnormalities. IMPRESSION: No acute abnormalities. Signed by: Dr. Judi Macias M.D. on 03/14/2020 6:25 AM Dictated By: JUDI JETER MD 4 Transcribed By: HUMAIRA on 03/14/20624 COPY TO: NICHOL MOSES DO CT ABDOMEN/PELVIS WO 2020-03-14 06:16:00 [place] [address] Patient Name: SERGIO HITCHCOCK MR #: [id number] : 1955 Age/Sex: 64/M Req #: [id number] Adm Physician: Ordered by: NICHOL MOSES DO Report #: [id number] Location: ER Room/Bed: Procedure: [id number] CT/CT ABDOMEN/PELVIS WO Exam Date: Exam Time: REPORT STATUS: Signed CT chest, abdomen and pelvis without contrast Indication: back pain, abd pain Technique: Thin collimation axial images obtained from the thoracic inlet to the level of the pubic symphysis without intravenous contrast. RADIATION DOSE: Total DLP: 859.65 mGy*cm Estimated effective dose: (DLP x 0.015 x size factor) mSv CTDIvol has been reviewed. It is below the limits set by the Radiation Protocol Committee (RPC). Dose reduction techniques used: Automated exposure control, adjustment of the mAs and/or kVp according to patient size, standardized low-dose protocol, and/or iterative reconstruction technique. Comparison: None. CHEST FINDINGS: Lymph nodes: No enlarged axillary, supraclavicular, mediastinal, or hilar lymph nodes. Thyroid: Visualized portions are normal. Mediastinum: The heart is normal in size. Mild burden of coronary artery atherosclerosis. No pericardial effusion. The esophagus is collapsed. Lungs: Right Lung: Centrilobular emphysema. Diffuse bronchial wall thickening. Subsegmental atelectasis in the middle and lower lobes. Left Lung: Centrilobular emphysema. Diffuse bronchial wall thickening. Subsegmental atelectasis in the lower lobe. Pleura:No pleural effusion or pleural based mass. ABDOMEN FINDINGS: Liver: Moderate to severe steatosis. Right lobe measures 18 cm in length. No evidence for mass. Gallbladder: Present and appears normal. No biliary ductal dilatation. Pancreas: Diffuse fatty atrophy. No mass or ductal dilatation. Spleen: Normal in size without mass. Adrenal Glands: No evidence for mass. Kidneys: Right: Multiple low attenuating cortical lesions. The largest is in the upper pole and measures 6 cm and 8 Hounsfield units suggestive of cyst. No hydronephrosis. Left: A cyst in the anterior interpolar region measures 1.3 cm. There are several other low attenuating cortical lesions scattered throughout the parenchyma, two small to characterize. No hydronephrosis. Lymph Nodes: No lymphadenopathy. Aorta: Normal in diameter with scattered calcifications. PELVIS FINDINGS: Bowel: Stomach: The stomach is normal. Small Bowel: Normal in caliber with normal wall thickness. Large Bowel: Diverticulosis coli. Mild to moderate burden of stool throughout the colon. No pericolonic inflammation. Appendix: Not visualized. Bladder: Mildly underdistended but otherwise normal. Prostate gland is mildly enlarged. Lymph Nodes: No enlarged abdominal or retroperitoneal lymph nodes. No free fluid or fluid collection. Bones: No focal osseous lesions. Soft tissues: Bilateral gynecomastia. Small bilateral fat-containing inguinal hernias. IMPRESSION: 1. Centrilobular emphysema and bronchial wall thickening suggestive of bronchitis. No pulmonary infiltrates. Subsegmental atelectasis. 2. Steatosis and hepatomegaly. Bilateral gynecomastia. 3. Diverticulosis coli. No evidence for bowel obstruction or inflammation. 4. Bilateral renal cortical lesions, some of which represent cysts. These can be evaluated with renal ultrasound on an outpatient basis. Signed by: Dr. Alex Munoz MD on 03/14/2020 6:36 AM Dictated By: ALEX MUNOZ MD 5 Transcribed By: HUMAIRA on 03/14/20635 COPY TO: NICHOL MOSES DO CT CHEST WO 2020-03-14 06:16:00 [place] [address] Patient Name: SERGIO HITCHCOCK MR #: [id number] : 1955 Age/Sex: 64/M Req #: [id number] Adm Physician: Ordered by: NICHOL MOSES DO Report #: [id number] Location: ER Room/Bed: Procedure: [id number] CT/CT CHEST WO Exam Date: Exam Time: REPORT STATUS: Signed CT chest, abdomen and pelvis without contrast Indication: back pain, abd pain Technique: Thin collimation axial images obtained from the thoracic inlet to the level of the pubic symphysis without intravenous contrast. RADIATION DOSE: Total DLP: 859.65 mGy*cm Estimated effective dose: (DLP x 0.015 x size factor) mSv CTDIvol has been reviewed. It is below the limits set by the Radiation Protocol Committee (RPC). Dose reduction techniques used: Automated exposure control, adjustment of the mAs and/or kVp according to patient size, standardized low-dose protocol, and/or iterative reconstruction technique. Comparison: None. CHEST FINDINGS: Lymph nodes: No enlarged axillary, supraclavicular, mediastinal, or hilar lymph nodes. Thyroid: Visualized portions are normal. Mediastinum: The heart is normal in size. Mild burden of coronary artery atherosclerosis. No pericardial effusion. The esophagus is collapsed. Lungs: Right Lung: Centrilobular emphysema. Diffuse bronchial wall thickening. Subsegmental atelectasis in the middle and lower lobes. Left Lung: Centrilobular emphysema. Diffuse bronchial wall thickening. Subsegmental atelectasis in the lower lobe. Pleura:No pleural effusion or pleural based mass. ABDOMEN FINDINGS: Liver: Moderate to severe steatosis. Right lobe measures 18 cm in length. No evidence for mass. Gallbladder: Present and appears normal. No biliary ductal dilatation. Pancreas: Diffuse fatty atrophy. No mass or ductal dilatation. Spleen: Normal in size without mass. Adrenal Glands: No evidence for mass. Kidneys: Right: Multiple low attenuating cortical lesions. The largest is in the upper pole and measures 6 cm and 8 Hounsfield units suggestive of cyst. No hydronephrosis. Left: A cyst in the anterior interpolar region measures 1.3 cm. There are several other low attenuating cortical lesions scattered throughout the parenchyma, two small to characterize. No hydronephrosis. Lymph Nodes: No lymphadenopathy. Aorta: Normal in diameter with scattered calcifications. PELVIS FINDINGS: Bowel: Stomach: The stomach is normal. Small Bowel: Normal in caliber with normal wall thickness. Large Bowel: Diverticulosis coli. Mild to moderate burden of stool throughout the colon. No pericolonic inflammation. Appendix: Not visualized. Bladder: Mildly underdistended but otherwise normal. Prostate gland is mildly enlarged. Lymph Nodes: No enlarged abdominal or retroperitoneal lymph nodes. No free fluid or fluid collection. Bones: No focal osseous lesions. Soft tissues: Bilateral gynecomastia. Small bilateral fat-containing inguinal hernias. IMPRESSION: 1. Centrilobular emphysema and bronchial wall thickening suggestive of bronchi tis. No pulmonary infiltrates. Subsegmental atelectasis. 2. Steatosis and hepatomegaly. Bilateral gynecomastia. 3. Diverticulosis coli. No evidence for bowel obstruction or inflammation. 4. Bilateral renal cortical lesions, some of which represent cysts. These can be evaluated with renal ultrasound on an outpatient basis. Signed by: Dr. Alex Munoz MD on 03/14/2020 6:36 AM Dictated By: ALEX MUNOZ MD 5 Transcribed By: HUMAIRA on 03/14/20635 COPY TO: NICHOL MOSES DO GLUBED 2019-09-15 16:04:00 Test Item GLUBED (test code = GLUBED) 177 mg/dL 74-106 H Performed by certified paper wrapping machine operator at [facility] [id number] 09:22:00* Test Item Value Reference Range Interpretation Comments GLUBED (test code = GLUBED) 138 mg/dL 74-106 H Performed by certified paper wrapping machine operator at [facility] [id number] 18:06:00* Test Item Value Reference Range Interpretation Comments TROPONIN-I (test code = TROPI) <0.015 ng/mL 0-0.045 N COMMENTS TO BOOK SHELVER: COLLECT 3 HOURS AFTER PREVIOUS SAMPLE- CT CHEST [id number] 15:19:00 Name: SERGIO HITCHCOCK [facility] : 1955 Age/S: 64 / M [address] [facility] Unit #: [id number] Loc: [place] [address] Phys: Stephen Comer NP Acct: [id number] Dis Date: Status: ADM IN PHONE #: [phone] Exam Date: 09/14/2019 1240 FAX #: [phone] Reason: chest pain EXAMS: CPT CODE: [id number] CT CHEST W/CONTRAST 63085 REASON FOR EXAM: chest pain EXAM ORDER DATE: 09/14/2019 10:29 AM Ordering Lawson: Stephen Comer NP PROCEDURE: - CT CHEST [...] intrathoracic process. Hepatomegaly with hepatic steatosis. Location: [facility] PAGE 1 Signed Report (CONTINUED) Name: SERGIO HITCHCOCK [facility] : 1955 Age/S: 64 / M [address] [facility] Unit #: [id number] Loc: [place] [address] Phys: Stephen Comer NP Acct: [id number] Dis Date: Status: ADM IN PHONE #: [phone] Exam Date: 09/14/2019 1240 FAX #: [phone] Reason: chest pain EXAMS: CPT CODE: [id number] CT CHEST W/CONTRAST 80226 <Continued> at 1519 Reported and signed by: Sy Joyce MD CC: Stephen Comer HISTORY DEPARTMENT CHAIR; Guy Stubbs MD Technologist:Mitesh Burgess RT(R)(CT) CTDI: DLP: Trnscb Date/Time: 09/14/2019 (1519) [id number] Orig Print D/T: S: 09/14/2019 (1522) PAGE 2 Signed Report [id number] 15:16:00* Test Item Value Reference Range Interpretation Comments GLUBED (test code = GLUBED) 174 mg/dL 74-106 H Performed by certified paper wrapping machine operator at [facility] [id number] 14:39:00* Test Item Value Reference Range Interpretation Comments TROPONIN-I (test code = TROPI) <0.015 ng/mL 0-0.045 N COMMENTS TO BOOK SHELVER: COLLECT 3 HOURS AFTER PREVIOUS [id number] 11:48:00* Test Item Value Reference Range Interpretation Comments GLUBED (test code = GLUBED) 219 mg/dL 74-106 H Performed by certified paper wrapping machine operator at [facility] LIPID PROFILE (CORONARY RISK)2019-09-14 09:58:00* Test Item [...] labsSPECIMEN COMMENTS: add to labs THYROID STIMULATING [id number] 09:58:00* Test Item Value Reference Range Interpretation Comments THYROID STIMULATING HORMONE (test code = TSH) 2.610 uIU/mL 0.36-3.7 4 N TSH REFERENCE RANGES: EUTHYROID: 0.35 - 4.3 mIU/mL HYPO : > 5.5 mIU/mL HYPER : < 0.35 mIU/mL SPECIMEN COMMENTS: add to labsSPECIMEN COMMENTS: add to labs [id number] 08:46:00* Test Item Value Reference Range Interpretation Comments GLUBED (test code = GLUBED) 157 mg/dL 74-106 H Performed by certified paper wrapping machine operator at [facility] [id number] 07:55:00* Test Item Value Reference Range Interpretation [...] skin infections -Liver cirrhosis - HEPATIC FUNCTION [id number] 07:39:00* Test Item Value Reference Range Interpretation [...] reference range due to change in reagent. [id number] 07:39:00* Test Item Value Reference Range Interpretation Comments LIPASE (test code = LIP) 44 U/L 73.0-393.0 L - XR CHEST 1 [id number] 06:56:00 FAX: Moise Donaldson MD [place]: St: REG Name: SERGIO STEWART [facility] : [birth year] Age/S: 64/M [address] [facility] Unit #: [id number] Loc: [place] [address] Phys: Moise Donaldson MD Acct: [id number] Dis Date: Status: REG ER PHONE #: [phone] Exam Date: 09/14/2019 06 FAX #: [phone] Reason: CHEST PAIN EXAMS: CPT CODE: [id number] XR CHEST 1 V 81395 EXAM: - XR CHEST 1 V Location [...] M.D. CC: Moise Donaldson MD Technologist: Kaylie Richardson) Trnscrd Date/Time/By: 09/14/2019 (0656) : By: [email or web address] Orig Print D/T : S: 09/14/2019 (0659) PAGE 1 Sig joey Report BASIC METABOLIC [id number] 06:14:00* Test Item Value Reference Range Interpretation [...] code = CA) 8.9 mg/dL 8.5-10.1 N [id number] 06:14:00* Test Item Value Reference Range Interpretation Comments TROPONIN-I (test code = TROPI) <0.015 ng/mL 0-0.045 N CBC W/O [id number] 06:01:00* Test Item Value Reference Range Interpretation [...] MPV) 9.8 fL 6.7-11.0 N BASIC METABOLIC [id number] 05:58:00* Test Item Value Reference Range Interpretation [...] CALCIUM (test code = CA) mg/dL 8.5-10.1 [id number] 05:58:00* Test Item Value Reference Range Interpretation Comments TROPONIN-I (test code = TROPI) ng/mL 0-0.045 CBC W/O [id number] 05:52:00* Test Item Value Reference Range Interpretation [...]
--- OUTSIDE RECORDS SUMMARY | 2020-03-14 06:44 | XMS REPORT | Clinical Summary ---
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
[2020-03-14] MEDS ORDERED: ALBUTEROL SULF 0.083% NEB SOLN 3 ML NEB NEB STA (06:56)
[2020-03-14] MEDS ORDERED: DEXTROSE 50% SYRINGE 50 ML IV STA (06:56)
[2020-03-14] MEDS ORDERED: FUROSEMIDE INJ 10 MG/ML 4 ML VIAL IV ONE (07:00)
--- NOTE | 2020-03-14 07:09 | NUR ---
{null, Report to LUCY Medina }
[2020-03-14] MEDS ORDERED: INSULIN REGULAR, HUMAN 100 UNIT/1 ML 3ML VIAL IV ONE (07:15)
--- NOTE | 2020-03-14 07:19 | NUR ---
{null, RT called for breathing treatment }
--- NOTE | 2020-03-14 07:31 | NUR ---
{null, Covid swab obtained and sent to lab. }
--- NOTE | 2020-03-14 07:37 | NUR ---
{null, Spoke with admit MD Dr. Stubbs regarding patients blood pressure. Was given a verbal order for 1/2 NS at 75 ml/hr, 1 liter bolus of 1/2 NS now and ceftriaxone 1 gm now then q 24. }
[2020-03-14] MEDS ORDERED: PIPER-TAZ 3.375 GM 50 ML IV SCH (07:45)
--- NOTE | 2020-03-14 07:47 | NUR ---
{null, Spoke with Dr. Stubbs regarding Lasix that was ordered, given verbal order to discontinue. }
[2020-03-14] MEDS ORDERED: SODIUM CHLORIDE 0.45% 1,000 ML IV SCH ×2 (08:00→08:45)
[2020-03-14] MEDS: CEFTRIAXONE SOD 1 GM/NS 50 ML 50 ML IV SCH (08:12)
[2020-03-14] MEDS ORDERED: LEVALBUTEROL HCL SOLN NEBU 1.25 MG/3 ML NEB INH ONE (08:15)
[2020-03-14] MEDS ORDERED: METHYLPREDNISOLONE SOD SUCC 125 MG/2ML VIAL IV ONE (08:15)
--- NOTE | 2020-03-14 08:47 | NUR ---
{null, H&P cc: dehydration HPI: 64yoM, my clinic pt, developed dehydration and generalized fatigue with worsening renal fn. Pt denies sob. 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??, Low T, HTG, HLD, Erectile dysfunction, Allergic rhinitis, hearing deficits, fungal infection, overweight, BMI 28, Diabetic polyneuropathy, nocturia, nicotine dependence, CAD, mild depression, PSHx: appendecotmy at 12yo, tonsillecotmy at 12yo Allergis; see emr FH/SH; single; 2 children; current smoker, high school education Meds; see MAR ROS: no f/c/s/N/V/D/REYNOLDS/cp/sob/skin rash/back pain/confusion/focal limb weakness v.s; revd PE tired appearing anicteric ns1s2 mod bs soft nt nd no e/t skin dry flat affect a&ox3; stevens labs/meds revd A/P; 64yoM NAKUL- IVF Hypotension- bolus fluids UTI- IV abx Sepsis due to UTI- ceftriaxone; ivf 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 }
[2020-03-14] MEDS ORDERED: DOCUSATE SODIUM 100 MG CAP PO PRN (09:00)
[2020-03-14] MEDS ORDERED: ACETAMINOPHEN 325 MG TAB PO PRN (09:00)
--- NOTE | 2020-03-14 09:00 | NUR ---
{null, Spoke with Dr. Stubbs in order to get orders for sliding scale. Was told to place patient on sliding scale low dose regular insulin ACHS also order for hemoglobin A1C and lipid panel. }
[2020-03-14] MEDS: SODIUM CHLORIDE 0.45% 1,000 ML IV SCH ×2 (09:04→22:33)
[2020-03-14] MEDS ORDERED: DEXTROSE 50% SYRINGE 50 ML IV PRN (09:15)
--- NOTE | 2020-03-14 09:25 | NUR ---
{null, Dr. Stubbs at bedside }
[2020-03-14 09:39] LABS: CHOL/HDL RATIO 6.4 (3.9-4.7)
--- NOTE | 2020-03-14 09:50 | NUR ---
{null, Patients family contact Judy Rosado (sister) [phone], Kait Luong (sister) [phone] }
[2020-03-14] MEDS ORDERED: LORATADINE10 MG (10:00)
[2020-03-14] MEDS ORDERED: FLUCONAZOLE200 MG (10:00)
[2020-03-14] MEDS ORDERED: FENOFIBRATE145 M1 (10:00)
[2020-03-14] MEDS ORDERED: METOPROLOL TART25 MG PO (10:00)
[2020-03-14] MEDS ORDERED: CLOPIDOGREL75 MG (10:00)
[2020-03-14] MEDS ORDERED: LISINOPRIL10 MG (10:00)
[2020-03-14] MEDS ORDERED: METFORMIN HCL500 MG (10:00)
[2020-03-14] MEDS ORDERED: ATORVASTATIN CA40 MG (10:00)
[2020-03-14] MEDS ORDERED: ASPIR 8181 MG PO (10:01)
[2020-03-14] MEDS ORDERED: GABAPENTIN400 MG PO (10:01)
[2020-03-14] MEDS ORDERED: VITAMIN C1000 M2 PO (10:02)
--- NOTE | 2020-03-14 10:15 | NUR ---
{null, Homre medications reconcilled. }
--- NOTE | 2020-03-14 10:19 | NUR ---
{null, Urinary cather inserted, 300 mL return output. }
--- NOTE | 2020-03-14 10:58 | NUR ---
{null, Spoke with Dr. Stubbs in regards to patients blood pressure. Informed him that patients blood pressure is trending downwards however his map has maintained above 60. Was given verbal order to hang 1 liter NS bolus. }
[2020-03-14] MEDS ORDERED: SODIUM CHLORIDE 0.9% 1000ML 1,000 ML IV SCH ×2 (11:00→12:00)
[2020-03-14 12:10] LABS: CREATINE KINASE 545 IU/L (30-200)
[2020-03-14] MEDS: INSULIN REGULAR, HUMAN 100 UNIT/1 ML 3ML VIAL SQ SCH ×3 (12:24→21:56)
[2020-03-14] MEDS ORDERED: SOD POLYSTYRENE SULFONATE SUSP 15 GM/60 ML BTL PO ONE ×2 (14:45→18:00)
--- NOTE | 2020-03-14 16:00 | NUR ---
{null, Urinary cathter drained. output 900 mL. }
--- NOTE | 2020-03-14 16:34 | NUR ---
{null, ultrasound at bedside. }
--- NOTE | 2020-03-14 18:30 | Consultation ---
DATE OF CONSULTATION: Initial Nephrology Consultation Report REASON FOR CONSULTATION: Renal failure. HISTORY OF PRESENT ILLNESS: Mr. Garvey is a 64-year-old male who presented to the hospital with some back pain and just not feeling well. I am being asked to see him because when he presented to the emergency room , his BUN and creatinine were 77 and 7.5, and the patient on interview does not know really a lot about his medical history. He is a very poor historian. I do not have any old records to go by except that in April of 2017, his serum creatinine was 0.9. The patient presents now with BUN and creatinine of 77 and 7.5, and the patient really denies taking. He says that in the past few weeks, he has taken some occasional Aleve or Advil, but not in the last two days prior to his admission. The patient states that he does have a history of diabetes and probably history of hypertension, but he is not sure. PAST MEDICAL HISTORY: Really uncertain. There is no real records to go by, so it is hard for me to document exactly what he has. MEDICATIONS: At the present time, the patient is on some insulin. He is getting IV fluids. SOCIAL HISTORY: No smoking. No EtOH. No HIV risk factors. REVIEW OF SYSTEMS: As per HPI. GENERAL: The patient is feeling weak. CARDIOVASCULAR: No chest pain. No shortness of breath. GI: No melena. No stomach aches. No dyspepsia. PULMONARY: No significant shortness of breath. PHYSICAL EXAMINATION: VITAL SIGNS: Currently, the patient's blood pressure is 85/68, pulse is 80. GENERAL: The patient is in no acute distress. HEENT: No increased JVD. CARDIOVASCULAR: Regular rate and rhythm. LUNGS: Clear to auscultation. ABDOMEN: Positive bowel sounds. EXTREMITIES: No edema, cyanosis, or clubbing. LABORATORY DATA: White count 95370, hemoglobin and hematocrit are within normal limits. Platelet count within normal limits. Urinalysis is really unremarkable. No trace protein, no blood. Sodium 141, potassium 5.5, chloride 104, bicarbonate 18, BUN and creatinine 77 and 7.5 respectively, calcium 7.8. CK 564.` IMPRESSION: 1. Acute kidney injury versus progressive chronic kidney disease versus acute kidney injury superimposed on chronic kidney disease. 2. Possible history of diabetes. 3. Possible history of hypertension. 4. Hypotension. 5. Shock. 6. Rule out sepsis. PLAN: At the present time, the patient has gotten 2 or 3 L of IV fluid. His blood pressure is around 100 systolic. He has acute kidney injury. The etiology is unclear. It is hard to know whether it is NSAID induced. He had a normal creatinine in 2017. I will check a renal ultrasound on him even though he has had a CAT scan. He will continue the IV fluids. We will monitor strict I's and Os. He may need a full serological workup. If by tomorrow, his kidneys are not better, we will need to draw ERASMO, atch-bhopwq-gwykekps DNA, C3, C4, c-ANCA, p-ANCA, anti-GBM antibody. We will draw all of those tomorrow once I see the kidney function is not getting any better to rule out any type of given some Kayexalate for the hyperkalemia. I will follow the patient with you. Thank you for this consultation. Ather MD JOANA Vogt/JT /[id number]
[2020-03-14 19:30] VITALS: BP 114/61
[2020-03-14 20:00] VITALS: BP 109/62
--- NOTE | 2020-03-14 20:14 | NUR ---
{null, Called Dr. Stubbs to get orders to transfer to IMCU. wasn't aware pt was in ICU. Ordered repeat BMP and that it was ok to transfer. }
[2020-03-14 20:55] LABS: CREATINE KINASE 574 IU/L (30-200)
[2020-03-14 21:00] VITALS: BP 113/60
[2020-03-14 21:19] LABS: ANION GAP 20.3 mmol/L (8-16); CALCIUM 7.2 mg/dL (8.4-10.2); CREATININE, SERUM 5.25 mg/dL (0.72-1.25); POTASSIUM 5.3 mmol/L (3.5-5.1)
--- NOTE | 2020-03-14 21:49 | NUR ---
{null, CALLED AND NOTIFIED DR DONAHUE PATIENT POTASSIUM STILL HIGH AT 5.3 AND GFR 11, NO ADDITIONAL ORDERS AT THIS TIME. WILL CONT TO MONITOR PT. }
[2020-03-15] VITALS (7 sets, daily range): BP systolic 95–114; BP diastolic 48–60
[2020-03-15 05:15] LABS: HEMATOCRIT 34.9 % (38.2-49.6); HEMOGLOBIN 10.6 g/dL (14.0-18.0); LYMPHOCYTES # (AUTO) 0.8 (1.0-3.2); LYMPHOCYTES % 14.9 % (18.0-39.1); MEAN CORPUSCULAR HEMOGLOBIN 28.6 pg (28-32); MEAN CORPUSCULAR HGB CONC 30.4 g/dL (31-35); MEAN CORPUSCULAR VOLUME 94.1 fL (81-99); MONOCYTES # (AUTO) 0.2 (0.2-0.8); MONOCYTES % 3.8 % (4.4-11.3); NEUTROPHILS # (AUTO) 4.5 (2.1-6.9); NEUTROPHILS % 80.8 % (38.7-80.0); PLATELET COUNT 197 x10e3/uL (140-360); RED BLOOD COUNT 3.71 x10e6/uL (4.3-5.7); RED CELL DISTRIBUTION WIDTH 16.8 % (11.7-14.4)
[2020-03-15 05:39] LABS: ALBUMIN 3.1 g/dL (3.5-5.0); ALBUMIN/GLOBULIN RATIO 1.2 (0.8-2.0); ANION GAP 16.9 mmol/L (8-16); CALCIUM 7.2 mg/dL (8.4-10.2); CREATININE, SERUM 4.05 mg/dL (0.72-1.25); POTASSIUM 4.9 mmol/L (3.5-5.1)
[2020-03-15] MEDS: INSULIN REGULAR, HUMAN 100 UNIT/1 ML 3ML VIAL SQ SCH ×4 (07:30→20:29)
[2020-03-15] MEDS: CEFTRIAXONE SOD 1 GM/NS 50 ML 50 ML IV SCH (08:32)
--- NOTE | 2020-03-15 08:42 | Diagnostic Imaging Report ---
Renal ultrasound. Clinical History: Renal failure Comparison Study: CT 03/12/2020 Findings: The right kidney measures 9.5cm and left kidney measures 11.1 cm. There is no evidence of hydronephrosis, nephrolithiasis or renal mass on either side. The echogenicity is normal bilaterally. The cortical thickness on the right side is 1.5 cm and on the left side is 1.9 cm. Oval anechoic structures are present bilaterally, in the interpolar region on the right measuring 5.4 x 6.2 x 6.0 cm and in the lower pole on the left measuring 1.1 x 1.1 x 0.9 cm. Both arterial and venous flow is documented to both kidneys. The bladder contains a Stapleton catheter. Impression: Simple benign appearing bilateral renal cysts. Otherwise unremarkable normal renal ultrasound. Signed by: Alf Santillan on 03/15/2020 8:39 AM
--- NOTE | 2020-03-15 09:57 | NUR ---
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 }
[2020-03-15] MEDS: SODIUM CHLORIDE 0.45% 1,000 ML IV SCH (12:48)
[2020-03-15] MEDS: CALCIUM CARBONATE 500 MG CHEWABLE TABS PO SCH ×2 (16:17→20:30)
[2020-03-15] MEDS: GABAPENTIN 100 MG CAP PO SCH (20:40)
[2020-03-16 00:38] VITALS: BP 122/57
[2020-03-16] MEDS: SODIUM CHLORIDE 0.45% 1,000 ML IV SCH ×2 (02:15→13:38)
[2020-03-16 04:00] VITALS: BP 126/63
[2020-03-16] MEDS: GABAPENTIN 100 MG CAP PO SCH ×3 (04:50→22:31)
--- NOTE | 2020-03-16 05:30 | NUR ---
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 }
[2020-03-16 05:56] LABS: ANION GAP 12.5 mmol/L (8-16); CALCIUM 7.4 mg/dL (8.4-10.2); CREATININE, SERUM 2.51 mg/dL (0.72-1.25); POTASSIUM 4.5 mmol/L (3.5-5.1)
[2020-03-16 08:00] VITALS: BP 150/78
[2020-03-16] MEDS: INSULIN REGULAR, HUMAN 100 UNIT/1 ML 3ML VIAL SQ SCH ×4 (08:03→21:00)
[2020-03-16] MEDS: CEFTRIAXONE SOD 1 GM/NS 50 ML 50 ML IV SCH (08:04)
[2020-03-16] MEDS: CALCIUM CARBONATE 500 MG CHEWABLE TABS PO SCH ×3 (08:06→22:27)
[2020-03-16 10:17] LABS: CREATININE,URINE RANDOM 62.37 mg/dL (63-166)
[2020-03-16 10:19] LABS: TOTAL PROTEIN, URINE 10.7 mg/dL (1-14)
[2020-03-16 12:00] VITALS: BP 148/66
[2020-03-16] MEDS ORDERED: ONDANSETRON HCL 4 MG ORAL DISINTEGRATING TAB PO PRN (14:15)
[2020-03-16 16:00] VITALS: BP 146/73
[2020-03-16] MEDS: SODIUM CHLORIDE 0.9% 1000ML 1,000 ML IV SCH (17:20)
[2020-03-16] MEDS ORDERED: ALBUTEROL/IPRATROPIUM 3 ML NEB NEB PRN (18:45)
[2020-03-16] MEDS: BUDESONIDE/FORMOTEROL FUMARATE 80/4.5MCG 6.9 GM INH AEROSOL IH SCH (20:00)
[2020-03-17 05:49] LABS: ANION GAP 13.6 mmol/L (8-16); CALCIUM 8.7 mg/dL (8.4-10.2); CREATININE, SERUM 1.85 mg/dL (0.72-1.25); POTASSIUM 4.6 mmol/L (3.5-5.1)
[2020-03-17] MEDS: SODIUM CHLORIDE 0.9% 1000ML 1,000 ML IV SCH ×2 (06:19→20:38)
[2020-03-17] MEDS: GABAPENTIN 100 MG CAP PO SCH (06:19)
[2020-03-17] MEDS: BUDESONIDE/FORMOTEROL FUMARATE 80/4.5MCG 6.9 GM INH AEROSOL IH SCH ×2 (07:00→19:00)
[2020-03-17] MEDS: INSULIN REGULAR, HUMAN 100 UNIT/1 ML 3ML VIAL SQ SCH ×4 (07:27→22:05)
[2020-03-17] MEDS: CEFTRIAXONE SOD 1 GM/NS 50 ML 50 ML IV SCH (07:29)
[2020-03-17 08:00] VITALS: BP 126/66
[2020-03-17] MEDS: CALCIUM CARBONATE 500 MG CHEWABLE TABS PO SCH ×3 (08:37→21:47)
[2020-03-17 12:00] VITALS: BP 148/68
[2020-03-17] MEDS ORDERED: METHYLPREDNISOLONE SOD SUCC 40 MG/ML VIAL 1ML IV ONE (12:30)
--- NOTE | 2020-03-17 12:43 | Consultation ---
DATE OF CONSULTATION: 03/17/2020 REASON FOR CONSULTATION: Bradycardia. CHIEF COMPLAINT: Kidney problems. HISTORY OF PRESENT ILLNESS: This is a 64-year-old male with history of hypertension, hyperlipidemia, COPD/emphysema, hepatitis C, history of drug abuse, now on methadone, status post left heart catheterization September 2019, showing minimal CAD with 30% RCA disease. The patient presents to [facility] ER with complaints of not feeling well, weakness, fatigue, was noted with a creatinine of 7.58 and a BUN of 77. The patient was hydrated and kidney function has improved, recent serum creatinine 1.85 and BUN 38. Earlier this morning, the patient was noted to be bradycardic. Cardiology was consulted to evaluate the patient. The patient is seen in room, very poor historian, was not quite sure why he came in other than he had kidney problems. Medication reviewed, was on NESTOR therapy and beta-tanya therapy. Tele was reviewed showing sinus rhythm with heart rate 40. The patient reports that he is not dizzy or lightheaded. Denies any chest pain or shortness of breath. Currently on tele, heart rate 61, sinus rhythm. PAST MEDICAL HISTORY: Status post left heart catheterization September 2019, showing 30% RCA, hypertension, hyperlipidemia, diabetes, COPD/emphysema, hepatitis C, and history of drug abuse. PAST SURGICAL HISTORY: Appendectomy, tonsillectomy, and left heart catheterization September 2019. SOCIAL HISTORY: He is , unemployed. Positive for tobacco use and positive for alcohol use. FAMILY HISTORY: Mother alive, history of kidney problems. Father , history of bone cancer. HOME MEDICATIONS: Include metoprolol 12.5 b.i.d., Neurontin 400 t.i.d., Plavix 75 mg daily, loratadine 10 mg daily, metformin 500 mg b.i.d., fenofibrate 145 mg daily, atorvastatin 40 mg daily, aspirin 81 mg daily, and lisinopril 10 mg daily. ALLERGIES: TO NO KNOWN ALLERGIES. REVIEW OF SYSTEMS: GENERAL: Denies any weight changes. Positive for fatigue and weakness. Denies any fevers or chills. SKIN: No rashes or sores reported. HEENT: Denies any nausea, vomiting, vision change, blurred vision, double vision, epistaxis, sore throat, or swollen neck. CARDIAC: Denies any chest pain. Positive for dyspnea on exertion. Denies any orthopnea or PND. Positive for lower extremity edema. RESPIRATORY: Positive for cough, chronic with yellow secretions. Denies any hemoptysis. GI: Denies any nausea, vomiting, diarrhea, constipation, melena, tarry or bloody stools. URINARY: Denies any frequency, urgency, hematuria, or dysuria. VASCULAR: Positive for lower extremity edema. Denies any claudication. MUSCULOSKELETAL: Positive for generalized joint pains and back pain. NEUROLOGIC: Denies any numbness, tingling, tremors, or blackouts. HEMATOLOGY: Denies any bruising or bleeding. ENDOCRINE: Denies any heat or cold intolerance, polyuria, polydipsia, or polyphagia. PHYSICAL EXAMINATION: VITAL SIGNS: Temperature 97.0, pulse 53, respiratory rate 12, blood pressure 123/66, and pulse ox 96% on room air. Height 66 inches, weight 188 pounds. GENERAL: Appears stated age, unreliable informant, poor historian. SKIN: No rashes or bruises noted. HEENT: Normocephalic. Pupils are equal and reactive. Extraocular movement intact. Trachea midline. No JVD. No carotid bruit. HEART: Regular rate and rhythm. PMI 4th and 5th intercostal space. LUNGS: Bilateral breath sounds. Clear to auscultation. Diminished airway entry and exit. ABDOMEN: Soft, nontender, and distended. No organomegaly noted. MUSCULOSKELETAL: Good muscle strength throughout. +1 lower extremity edema. VASCULAR: +2 radial pulses bilaterally, +1 DP/PT pulses bilaterally. NEUROLOGIC: Cranial nerves 2 through 12 seem intact. LABORATORY DATA: Currently sodium 144, potassium 4.6, chloride 115, BUN 38, creatinine 1.8, and glucose 94. A1c of 7.2. Triglycerides 217, total cholesterol 204, LDL 129, and HDL 32. White count 5, hemoglobin 10, hematocrit 34, and platelets 197. CT chest showing centrilobular emphysema and bronchial wall thickening suggestive of bronchitis. Initial EKG showing sinus rhythm, heart rate 68. EKG this morning showing sinus norma, heart rate 43. ASSESSMENT AND PLAN: 1. Acute kidney injury. 2. Sinus norma. 3. Status post left heart catheterization September 2019, showing 30% RCA disease. 4. Diabetes. 5. Hypertension. 6. Chronic obstructive pulmonary disease/emphysema. 7. Tobacco use. 8. Hepatitis C. 9. History of drug abuse. PLAN: The patient presents with complaints of weakness and fatigue, was noted to be in acute renal failure since admission, was hydrated and kidney function now has been improving, being followed by renal specialist. The patient was noted to be bradycardic on tele. Cardiology consulted. The patient is asymptomatic. We will recommend to avoid all AV dallin blocking agents and sedatives. We will get a TSH. We will get an echo to evaluate heart function and structure. Continue telemonitoring. We will continue to monitor the patient and adjust cardiac therapy as clinical course dictates. Thank you very much for this consult. Seen and examined Agree with note Sinus Bradycardia Avoid AV blocking agents No more BB, NESTOR ? no more Metformin Dictated by Stephen Comer NP Nehemias Rosa MD DC/JT /[id number] MTDD
--- NOTE | 2020-03-17 13:03 | Consultation ---
DATE OF CONSULTATION: Pulmonary Critical Care Consultation CHIEF COMPLAINT: Wheezing and dyspnea. HISTORY OF PRESENT ILLNESS: The patient is a 64-year-old man. He has a history of COPD. He uses a rescue inhaler at home. He came to the emergency department on March 14, not feeling well. He was found to have a creatinine of 7.5. His nonsteroidal anti-inflammatory medications were held and he received some IV fluids and his creatinine is improving. Last night, he had wheezing and coughing. He did not complain of chest pain or fevers. He states that he feels better now. PAST MEDICAL HISTORY: 1. COPD. 2. Diabetes. 3. Hypertension. PAST SURGICAL HISTORY: Noncontributory. SOCIAL HISTORY: The patient quit smoking. He is not a drinker. ALLERGIES: NO KNOWN DRUG ALLERGIES. REVIEW OF SYSTEMS: The patient has no fevers. He has no headache. He is not having any neck pain. He has no chest pain. He did have cough and wheezing last night. He has no abdominal pain. He has no nausea or vomiting. He denies any leg edema. PHYSICAL EXAMINATION: VITAL SIGNS: The patient is afebrile. The blood pressure is 126/66, saturation is 96%, and heart rate is 55 to 60. HEENT: Shows no facial swelling or erythema. CARDIAC: Reveals regular rate and rhythm with normal S1 and S2. LUNGS: Auscultation of lungs reveals prolonged expiratory phase bilaterally. There is no wheezing or coughing at this time. ABDOMEN: Soft and nontender. There is no rebound or guarding. EXTREMITIES: Shows no leg edema or calf tenderness. There is no cyanosis or clubbing. SKIN: Shows no rashes. NEUROLOGICAL: Shows no focal abnormalities. LABORATORY DATA: BUN to creatinine ratio is improved to 38/1.85. Carbon dioxide is 20 and the potassium is normal. Ionized calcium is 1. White blood cell count is 5.6 and the hemoglobin is 10.6. The platelet count is 197. RADIOGRAPHIC DATA: Chest x-ray shows centrilobular emphysema. There is some mild amount of megaly. There is some diverticulosis. IMPRESSION: 1. Chronic obstructive pulmonary disease with acute exacerbation. 2. Acute renal failure. 3. Diabetes. 4. Hypertension. 5. Steatohepatitis. PLAN: 1. The patient will receive one dose of Solu-Medrol 30 mg. 2. Continue bronchodilators on an as-needed basis. 3. Continue antibiotics. 4. Cardiology evaluation. MD VERONICA Doshi/JT /[id number]
--- NOTE | 2020-03-17 15:10 | NUR ---
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 Guy Stubbs MD, PhD. }
[2020-03-17 16:00] VITALS: BP 128/43
--- NOTE | 2020-03-17 17:23 | Diagnostic Imaging Report ---
EXAM: CHEST 2 VIEWS DATE: 03/17/2020 4:48 PM INDICATION: ^Dyspnea ^[id number] ^[id number] COMPARISON: Chest CT, 03/14/2020 FINDINGS: Lines and tubes: None Heart size normal. No focal pulmonary opacity, pleural effusion or pneumothorax. The costophrenic angles are not fully included for evaluation. Lungs appear mildly hyperinflated. Upper abdomen unremarkable. No acute bony abnormality. IMPRESSION: No evidence for acute disease. Signed by: Dr. Dustin Armenta M.D. on 03/17/2020 5:20 PM
--- NOTE | 2020-03-17 19:26 | NUR ---
{null, Reported off to on coming nurse Dary AYALA. Have notified her pt is due to void with damico removed at 1840 and the right femoral central line needs to be removed per Dr Stubbs orders while on rounds. No complications noted with damico removal, balloon intact, tip clean. }
[2020-03-17 19:30] VITALS: BP 150/74
[2020-03-17] MEDS: ALBUTEROL SULF 0.083% NEB SOLN 3 ML NEB NEB PRN (20:55)
[2020-03-17] MEDS: ZOLPIDEM TARTRATE 5 MG TAB PO PRN (22:06)
[2020-03-18] VITALS (7 sets, daily range): BP systolic 140–165; BP diastolic 59–74
[2020-03-18 05:54] LABS: BASOPHILS % 0.1 % (0.0-1.0); HEMATOCRIT 35.3 % (38.2-49.6); HEMOGLOBIN 11.3 g/dL (14.0-18.0); LYMPHOCYTES # (AUTO) 1.5 (1.0-3.2); MEAN CORPUSCULAR HEMOGLOBIN 29.2 pg (28-32); MEAN CORPUSCULAR VOLUME 91.2 fL (81-99); MONOCYTES # (AUTO) 0.7 (0.2-0.8); MONOCYTES % 9.5 % (4.4-11.3); NEUTROPHILS # (AUTO) 4.7 (2.1-6.9); PLATELET COUNT 211 x10e3/uL (140-360); RED BLOOD COUNT 3.87 x10e6/uL (4.3-5.7); RED CELL DISTRIBUTION WIDTH 15.9 % (11.7-14.4)
--- NOTE | 2020-03-18 06:49 | NUR ---
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 6-12 renal improving; CXR revd; check BMP Guy Stubbs MD, PhD. }
[2020-03-18] MEDS: BUDESONIDE/FORMOTEROL FUMARATE 80/4.5MCG 6.9 GM INH AEROSOL IH SCH ×2 (07:00→19:00)
[2020-03-18 07:04] LABS: ANION GAP 14.6 mmol/L (8-16); CALCIUM 8.9 mg/dL (8.4-10.2); CREATININE, SERUM 1.66 mg/dL (0.72-1.25); POTASSIUM 4.6 mmol/L (3.5-5.1)
[2020-03-18] MEDS: INSULIN REGULAR, HUMAN 100 UNIT/1 ML 3ML VIAL SQ SCH ×4 (07:16→21:19)
[2020-03-18] MEDS: CALCIUM CARBONATE 500 MG CHEWABLE TABS PO SCH ×3 (08:03→21:13)
[2020-03-18] MEDS: SODIUM CHLORIDE 0.9% 1000ML 1,000 ML IV SCH ×3 (08:03→20:00)
[2020-03-18] MEDS: CEFTRIAXONE SOD 1 GM/NS 50 ML 50 ML IV SCH (08:03)
--- NOTE | 2020-03-18 11:02 | Progress Note ---
DATE: SUBJECTIVE: The patient feels better. He is not having any wheezing or coughing. He has no dyspnea. He is not having any chest pain. PHYSICAL EXAMINATION: VITAL SIGNS: The blood pressure is 140/60, saturation is 99% and respiratory rate is 18. HEENT: Shows no facial swelling or erythema. CARDIAC: Reveals regular rate and rhythm with normal S1 and S2. LUNGS: Auscultation of lungs shows clear breath sounds bilaterally. There is no wheezing. ABDOMEN: Soft and nontender. There is no rebound or guarding. EXTREMITIES: Shows no leg edema or calf tenderness. LABORATORY DATA: CBC is within normal limits. BUN is 34 and creatinine is 1.66. Carbon dioxide is 19. IMPRESSION: 1. Chronic obstructive pulmonary disease with acute exacerbation. 2. Acute kidney injury. 3. Diabetes. 4. Hypertension. 5. Steatohepatitis. PLAN: 1. Continue bronchodilators as needed. 2. Complete antibiotics. 3. Discussed disposition with Dr. Stubbs and Case Management. Jonnathan Peterson MD [facility]/MOD[facility] /[id number]
[2020-03-18] MEDS: ALBUTEROL SULF 0.083% NEB SOLN 3 ML NEB NEB PRN (15:55)
[2020-03-18] MEDS: SODIUM BICARBONATE 650 MG TAB PO SCH ×2 (17:27→21:15)
--- NOTE | 2020-03-18 18:32 | NUR ---
{null, ARRIVED TO UNIT AMBULATORY WITH IMCU NURSE. ORIENTED TO ROOM. IN [employer]. }
--- NOTE | 2020-03-18 19:05 | NUR ---
{null, RECEIVED BEDSIDE SHIFT REPORT FROM PREVIOUS NURSE. CALL LIGHT WITHIN REACH. PATIENT IN BED. }
[2020-03-18] MEDS: ZOLPIDEM TARTRATE 5 MG TAB PO PRN (23:08)
[2020-03-19] VITALS (7 sets, daily range): BP systolic 133–181; BP diastolic 66–85
[2020-03-19] MEDS: SODIUM BICARBONATE 650 MG TAB PO SCH ×2 (05:14→14:09)
[2020-03-19] MEDS: SODIUM CHLORIDE 0.9% 1000ML 1,000 ML IV SCH (05:21)
[2020-03-19 05:40] LABS: BASOPHILS % 0.3 % (0.0-1.0); EOSINOPHILS # (AUTO) 0.2 (0.0-0.4); EOSINOPHILS % 3.1 % (0.0-6.0); HEMATOCRIT 36.3 % (38.2-49.6); HEMOGLOBIN 11.7 g/dL (14.0-18.0); LYMPHOCYTES # (AUTO) 1.9 (1.0-3.2); LYMPHOCYTES % 24.7 % (18.0-39.1); MEAN CORPUSCULAR HEMOGLOBIN 29.6 pg (28-32); MEAN CORPUSCULAR HGB CONC 32.2 g/dL (31-35); MEAN CORPUSCULAR VOLUME 91.9 fL (81-99); MONOCYTES # (AUTO) 0.6 (0.2-0.8); MONOCYTES % 7.7 % (4.4-11.3); NEUTROPHILS % 63.8 % (38.7-80.0); PLATELET COUNT 216 x10e3/uL (140-360); RED BLOOD COUNT 3.95 x10e6/uL (4.3-5.7); RED CELL DISTRIBUTION WIDTH 15.9 % (11.7-14.4)
[2020-03-19 06:31] LABS: ANION GAP 15.2 mmol/L (8-16); CALCIUM 8.6 mg/dL (8.4-10.2); CREATININE, SERUM 1.58 mg/dL (0.72-1.25); MAGNESIUM 1.5 MG/DL (1.3-2.1); PHOSPHORUS 2.6 MG/DL (2.3-4.7); POTASSIUM 4.2 mmol/L (3.5-5.1)
--- NOTE | 2020-03-19 07:27 | NUR ---
{null, GAVE BEDSIDE SHIFT REPORT TO ONCOMING NURSE. CALL LIGHT WITHIN REACH. PATIENT IN BED. HOURLY ROUNDING PERFORMED. DUBON DRAINING WELL AND CARE WAS DONE DURING THE SHIFT }
[2020-03-19] MEDS: INSULIN REGULAR, HUMAN 100 UNIT/1 ML 3ML VIAL SQ SCH ×3 (07:30→16:27)
--- NOTE | 2020-03-19 07:35 | NUR ---
{null, pt resting in bed, pt states he wants to go home and will leave ama if dr will not dc him. explain to pt dr will round and he can discuss with dr plan of care. right femoral drsg dry and intact. }
[2020-03-19] MEDS: BUDESONIDE/FORMOTEROL FUMARATE 80/4.5MCG 6.9 GM INH AEROSOL IH SCH ×2 (08:03→19:50)
[2020-03-19] MEDS: CEFTRIAXONE SOD 1 GM/NS 50 ML 50 ML IV SCH (08:03)
[2020-03-19] MEDS: CALCIUM CARBONATE 500 MG CHEWABLE TABS PO SCH ×2 (09:00→15:00)
[2020-03-19] MEDS: MORPHINE SULFATE INJ 4 MG/ML INJ 1ML IV PRN ×2 (12:13→17:38)
[2020-03-19] MEDS ORDERED: SODIUM BICARBO650 MG PO ×2 (12:46→20:19)
--- NOTE | 2020-03-19 12:57 | NUR ---
{null, dr blackwell to see pt. bp meds ordered for hypertension, labs for the am. dr states pt bp is too high for dc at time }
--- NOTE | 2020-03-19 13:45 | NUR ---
{null, spoke with dr majano. dr majano changed bp med to hydralizine. first dose to be given now and he will come back to do rounds to check pt dc status }
[2020-03-19] MEDS ORDERED: HYDRALAZINE HCL 25 MG TAB PO SCH (14:00)
--- NOTE | 2020-03-19 14:00 | NUR ---
{null, notified pt of plan of care regarding new meds for his bp and that dr majano will be rounding later to check bp to decide on dc. pt verbalized understanding. }
[2020-03-19] MEDS ORDERED: AMLODIPINE BESYLATE 5 MG TAB PO SCH (14:15)
--- NOTE | 2020-03-19 15:00 | NUR ---
{null, tech states pt is upset and slamming door. went to pt room to ask what was needed. pt asks what time dr majano is coming to hospital. told pt dr majano did not give me a time he just stated he will be by later to do rounds. explain to pt again about his elevated bp and the med should be taking effect }
--- NOTE | 2020-03-19 16:45 | NUR ---
{null, pt called and asked when dr majano will be arriving to hospital. explain to pt i do not know a time but he has to come today because he has not done rounds. pt asks why is he in hospital. explained again to pt his bp was elevated and dr majano and dr vargas ordered bp meds. }
--- NOTE | 2020-03-19 16:58 | NUR ---
{null, called dr majano, left message to notify him pt is anxious and wants to go home and is asking for a time he will be at hospital. dr majano calld back and states he will be here to round and could not say a time. }
--- NOTE | 2020-03-19 17:37 | NUR ---
{null, pt states he has a headache because he does not like the food here. he requested morphine. }
--- NOTE | 2020-03-19 19:34 | NUR ---
{null, Received pt in bed awake a/o x3. States relief in REYNOLDS discomfort at this time. No s/sx of acute distress noted. Bed in low position, call masterson and personal items within reach. Pt awaiting MD visit for possible d/c home this evening. Will cont to mon }
--- NOTE | 2020-03-19 20:04 | NUR ---
{null, MD in to see patient, will discharge home per orders }
[2020-03-19] MEDS ORDERED: HYDRALAZINE HCL10 MG PO (20:17)
--- NOTE | 2020-03-19 20:51 | NUR ---
{null, Pt rx and discharge instructions given with verbal understanding of instructions per pt. IV SL removed without difficulty. Transported to front door via w/c and staff, no s/sx of distress/discomfort noted. }
[2020-03-20] MEDS ORDERED: NIFEDIPINE CR 30 MG TAB PO SCH (09:00)
== END 2020-03-19 22:15 | disposition home or self-care (01) | DRG 871 ==
LOC: ER 03:54 → ERHOLD 06:41 → ICU 18:05 → IMCU 21:18 → OBSVTOIN 03-15 08:59 → MED/SURG2 03-18 17:47 → MED/SURG 03-18 18:05
PROVIDERS: ADMIT Internal Medicine; ATTEND Internal Medicine
DX: A41.9 Sepsis, unspecified organism (principal); N17.0 Acute kidney failure with tubular necrosis; N39.0 Urinary tract infection, site not specified; E87.2 Acidosis; N18.2 Chronic kidney disease, stage 2 (mild); Z72.0 Tobacco use; K75.81 Nonalcoholic steatohepatitis (NASH); I12.9 Hypertensive chronic kidney disease with stage 1 through stage 4 chronic kidney disease, or unspecified chronic kidney disease; B19.20 Unspecified viral hepatitis C without hepatic coma; E11.22 Type 2 diabetes mellitus with diabetic chronic kidney disease; I25.10 Atherosclerotic heart disease of native coronary artery without angina pectoris; Z11.59 Encounter for screening for other viral diseases; J43.2 Centrilobular emphysema; Z99.81 Dependence on supplemental oxygen; F17.200 Nicotine dependence, unspecified, uncomplicated
CPT/HCPCS: 36415; 36555; 71046; 71250; 72125; 74176; 76770; 80048; 80053; 80061; 80307; 80320; 81001; 81050; 82550; 82553; 82575; 82948; 83036; 83605; 83735; 84100; 84156; 84443; 84484; 85025; 87040; 87635; 93005; 93306; 94640; 96372; 99285; G0378; J0696; J1817; J2270; J2920; J2930; J7030; J7799; Q0162

== ENCOUNTER 2020-09-28 15:39 | Emergency (ER) | payer MEDICARE ==
[~2020-09-28] VITALS: Ht 167.6 cm; Wt 85.3 kg
[~2020-09-28 15:39] MED LIST: ASPIR 8181 MG PO; ATORVASTATIN CA40 MG; CLOPIDOGREL75 MG; FENOFIBRATE145 M1; FLUCONAZOLE200 MG; GABAPENTIN400 MG PO; HYDRALAZINE HCL10 MG PO; LISINOPRIL10 MG; LORATADINE10 MG; METFORMIN HCL500 MG; METOPROLOL TART25 MG PO; SODIUM BICARBO650 MG PO; VITAMIN C1000 M2 PO
[2020-09-28] MEDS ORDERED: ASPIRIN 81 MG CHEW TAB PO ONE (16:00)
[2020-09-28 16:14] LABS: BASOPHILS # (AUTO) 0.1 (0.0-0.1); BASOPHILS % 0.4 % (0.0-1.0); EOSINOPHILS # (AUTO) 0.3 (0.0-0.4); EOSINOPHILS % 2.1 % (0.0-6.0); HEMATOCRIT 42.5 % (38.2-49.6); HEMOGLOBIN 13.6 g/dL (14.0-18.0); LYMPHOCYTES # (AUTO) 3.3 (1.0-3.2); LYMPHOCYTES % 24.9 % (18.0-39.1); MEAN CORPUSCULAR HEMOGLOBIN 30.2 pg (28-32); MEAN CORPUSCULAR VOLUME 94.2 fL (81-99); MONOCYTES % 7.3 % (4.4-11.3); NEUTROPHILS # (AUTO) 8.5 (2.1-6.9); NEUTROPHILS % 64.8 % (38.7-80.0); PLATELET COUNT 234 x10e3/uL (140-360); RED BLOOD COUNT 4.51 x10e6/uL (4.3-5.7); RED CELL DISTRIBUTION WIDTH 14.6 % (11.7-14.4)
[2020-09-28 16:35] LABS: ALANINE AMINOTRANSFERASE 19 IU/L (0-55); ALBUMIN 4.2 g/dL (3.5-5.0); ALBUMIN/GLOBULIN RATIO 1.5 (0.8-2.0); ALKALINE PHOSPHATASE 58 IU/L (40-150); ANION GAP 16.3 mmol/L (8-16); BLOOD UREA NITROGEN 20 mg/dL (7-26); BUN/CREATININE RATIO 18 (6-25); CALCIUM 8.9 mg/dL (8.4-10.2); CARBON DIOXIDE 26 mmol/L (22-29); CHLORIDE 104 mmol/L (98-107); CREATINE KINASE 83 IU/L (30-200); CREATININE, SERUM 1.09 mg/dL (0.72-1.25); EST GLOMERULAR FILTRATION RATE > 60 ML/MIN (60-); GLUCOSE 123 mg/dL (74-118); POTASSIUM 4.3 mmol/L (3.5-5.1); SODIUM 142 mmol/L (136-145)
== END 2020-09-28 17:36 | disposition home or self-care (01) ==
LOC: ER 16:14
DX: J44.9 Chronic obstructive pulmonary disease, unspecified (principal); R94.09 Abnormal results of other function studies of central nervous system; E11.65 Type 2 diabetes mellitus with hyperglycemia; I10 Essential (primary) hypertension; F17.210 Nicotine dependence, cigarettes, uncomplicated
CPT/HCPCS: 36415; 71045; 80053; 82550; 82553; 83880; 84484; 85025; 93005; 99284; U0002